=== PATIENT | male | born 1935 | race Caucasian/White ===

== ENCOUNTER 2017-06-25 21:53 | Emergency (ER) | payer OTHER, MEDICAID ==
[2017-06-25] MEDS ORDERED: ACETAMINOPHEN 325 MG TAB PO ONE (22:13)
[2017-06-25 22:25] LABS: PLATELET COUNT 238 10^3/uL (150-400)
[2017-06-25] MEDS ORDERED: NS 1,000 ML IV ONE ×2 (22:27→23:59)
[2017-06-25] MEDS ORDERED: IBUPROFEN 600 MG TAB PO ONE (22:27)
--- NOTE | 2017-06-25 22:31 | EDPHY ---
H & P Stated Complaint: fever Time Seen by Provider: 06/25/17 22:12 HPI/ROS: HPI The patient presents with fever and flu-like symptoms for the last 1 week getting progressively worse to the point that his fever tonight was 104 F. He is brought in by ambulance. He comes from [place] where he is been treated with 2 days of Tamiflu for his symptoms. He has been exposed to several people with similar illness at his [facility]. He complains of a dry cough, rhinorrhea, increased thirst. He has less appetite than usual though is able to tolerate fluids and has not been vomiting. His energy level is much lower than usual and he has been mostly staying in his room for the last 1 week, usually he exercises daily. Nurses at the fpc report that he is more confused than usual. He received Tylenol prior to arrival here. REVIEW OF SYSTEMS Constitutional: No fever, no chills. Eyes: No discharge. ENT: No sore throat. Cardiovascular: No chest pain, no palpitations. Respiratory: No cough, no shortness of breath. Gastrointestinal: No abdominal pain, no vomiting. Genitourinary: No hematuria. Musculoskeletal: No back pain. Skin: No rashes. Neurological: No headache. PMHx: Hyponatremia, hypertension, diabetes, dementia, hypothyroidism Soc Hx: Resides at [place], his currently lives in [place] PHYSICAL General Appearance: Alert, no distress Eyes: Pupils equal and round no pallor or injection ENT, Mouth: Mucous membranes dry Respiratory: There are no retractions, lungs are clear to auscultation Cardiovascular: Tachycardic rate rate and regular rhythm Gastrointestinal: Abdomen is soft and non-tender, no masses, bowel sounds normal Neurological: A&O, moves all extremities Skin: Warm and dry, no rashes Musculoskeletal: Neck is supple non tender Extremities: symmetrical, full range of motion Psychiatric: Patient is oriented X 3, there is no agitation Source: Patient, Family, EMS Exam Limitations: No limitations - Personal History Current Tetanus Diphtheria and Acellular Pertussis (TDAP): Yes - Medical/Surgical History Hx Asthma: No Hx Chronic Respiratory Disease: No Hx Diabetes: Yes Hx Cardiac Disease: No Hx Renal Disease: No Hx Cirrhosis: No Hx Alcoholism: No Hx HIV/AIDS: No Hx Splenectomy or Spleen Trauma: No Other PMH: diabetes, dematitis, dementia, htn, hypo-osmolarlity, hyponatrimia, hypothyroidism, chronic back pain. - Social History Smoking Status: Never smoked Constitutional: Initial Vital Signs Temperature (C) 39.5 C H 06/25/17 22:09 Heart Rate 118 H 06/25/17 22:09 Respiratory Rate 20 06/25/17 22:09 Blood Pressure 139/57 H 06/25/17 22:09 O2 Sat (%) 85 L 06/25/17 22:09 O2 Delivery Mode Nasal Cannula O2 (L/minute) 3 Allergies/Adverse Reactions: No Known Allergies Allergy (Unverified 06/25/17 22:06) Home Medications: Medication Instructions Recorded Aspirin 06/25/17 Cyanocobalamin 06/25/17 Levothyroxine 06/25/17 Lotensin (*) 06/25/17 Metformin HCl 06/25/17 Sodium Bicarbonate 06/25/17 Tamiflu 75 mg (*) 06/25/17 Tylenol 06/25/17 Vitamin D3 06/25/17 Medical Decision Making Differential Diagnosis: This is an 82-year-old male with dementia, hypertension, diabetes, hypothyroidism and hyponatremia who presents brought in by ambulance from [place], his fpc with 1 week of flu-like symptoms and fever, on 2 days of Tamiflu, still with high temperatures to 104 and confusion. On exam, he is tachycardic and febrile. Blood pressure is stable. Differential diagnosis includes sepsis, influenza, pneumonia, bronchitis, sinusitis, urinary tract infection, less likely meningitis. In the emergency department, patient was given 1 L of fluid that started with EMS EN route, 2nd L. labs demonstrated positive for flu B, sodium of 122, unsure what his usual is. Blood cultures were sent. Initial lactate 2.2. Chest x-ray revealed right-sided pneumonia, because of this patient was started on ceftriaxone and azithromycin. Blood pressures trended downward, maps remained above 65. He was given additional L of fluid because of this. There are no hospital beds available currently, thus we have contacted several local hospitals. [facility] has an available bed and I have discussed the case with Dr. Graff of the hospitalist service. He accepts the patient for transport. Repeat lactate resulted and was 1.8. Patient's blood pressures remain stable with maps of about 65. I do not feel central line is indicated at this time for pressors. Critical Care Time: CRITICAL CARE Critical care time spent by me, Dr. Macias, exclusively with this patient was 45 minutes, exclusive of PA time and exclusive of procedures. The organ system at risk was cardiac and I gave IV fluids, antibiotics, close blood pressure monitoring, transferring patient to outside hospital to prevent worsening of the patients condition. - Data Points Laboratory Results: Laboratory Results 06/25/17 22:02 06/25/17 22:02 Medications Given: Discontinued Medications Acetaminophen (Tylenol) 650 mg PO EDNOW ONE Stop: 06/25/17 22:14 Last Admin: 06/25/17 22:39 Dose: Not Given Sodium Chloride (Ns) 1,000 mls @ 0 mls/hr IV EDNOW ONE; Wide Open PRN Reason: Protocol Stop: 06/25/17 22:28 Last Admin: 06/25/17 22:54 Dose: 1,000 mls Azithromycin 500 mg/ Dextrose 255 mls @ 255 mls/hr IV EDNOW ONE PRN Reason: Protocol Stop: 06/26/17 00:04 Last Admin: 06/26/17 00:13 Dose: 255 mls Ceftriaxone Sodium/Dextrose (Rocephin 1 Gm (Premix)) 50 mls @ 100 mls/hr IV EDNOW ONE PRN Reason: Protocol Stop: 06/25/17 23:34 Last Admin: 06/25/17 23:33 Dose: 50 mls Sodium Chloride (Ns) 1,000 mls @ 0 mls/hr IV EDNOW ONE; Wide Open PRN Reason: Protocol Stop: 06/26/17 00:00 Last Admin: 06/26/17 00:16 Dose: 1,000 mls Ibuprofen (Motrin) 600 mg PO EDNOW ONE Stop: 06/25/17 22:28 Last Admin: 06/25/17 22:51 Dose: 600 mg Departure - Departure Disposition: Acute Care Hospital Not [facility] Clinical Impression: Influenza B, Hypoxia, Hyponatremia Sepsis Qualifiers: Sepsis type: sepsis due to unspecified organism Qualified Code(s): A41.9 - Sepsis, unspecified organism Pneumonia Qualifiers: Pneumonia type: due to unspecified organism Laterality: right Lung location: unspecified part of lung Qualified Code(s): J18.9 - Pneumonia, unspecified organism Condition: Fair Referrals: Patient,NotPresent [Unknown] - As per Instructions
[2017-06-25] MEDS ORDERED: AZITHROMYCIN IV 500 MG in D5W 250 ML IV ONE (23:05)
[2017-06-26 00:28] VITALS: TEMP 99; O2SAT 93
[2017-06-26 01:51] VITALS: BP 97/53; PULSE 91; RESP 18
== END 2017-06-26 01:30 | disposition short-term general hospital (02) ==
DX: A41.9 Sepsis, unspecified organism (principal); J10.00 Influenza due to other identified influenza virus with unspecified type of pneumonia; R09.02 Hypoxemia; E87.1 Hypo-osmolality and hyponatremia; I10 Essential (primary) hypertension; E11.9 Type 2 diabetes mellitus without complications; E86.9 Volume depletion, unspecified; Z79.82 Long term (current) use of aspirin
CPT/HCPCS: 71046; 96361; 96365; 96367; 99291; J0456; J0696

== ENCOUNTER 2017-07-07 14:36 | Inpatient (IN) | payer OTHER, MEDICAID ==
--- NOTE | 2017-07-07 14:36 | EDPHY ---
H & P Constitutional: Initial Vital Signs Temperature (C) 36.7 C 07/07/17 14:36 Heart Rate 113 H 07/07/17 14:36 Respiratory Rate 20 07/07/17 14:36 Blood Pressure 156/106 H 07/07/17 14:36 O2 Sat (%) 93 07/07/17 14:36 O2 Delivery Mode Nasal Cannula O2 (L/minute) 4 Allergies/Adverse Reactions: No Known Allergies Allergy (Verified 07/07/17 16:17) Home Medications: Medication Instructions Recorded Acetaminophen [Tylenol 325mg (*)] 650 mg PO Q8 PRN 07/07/17 Aspirin [Aspirin 325 mg (*)] 325 mg PO DAILY 07/07/17 Benazepril HCl [Lotensin (*)] 40 mg PO BID 07/07/17 Cholecalciferol Vit D3 [Vitamin D3 1,000 units PO DAILY@1030 07/07/17 (*)] Cyanocobalamin [Vitamin B12 (*)] 500 mcg PO DAILY@1030 07/07/17 Linezolid [Zyvox 600 mg (*)] 600 mg PO Q12 07/07/17 Metformin HCl [Metformin 1000 mg] 1,000 mg PO DAILY 07/07/17 Metoprolol Tartrate [Lopressor 25 25 mg PO BID 07/07/17 mg (*)] Sodium Bicarbonate [Na Bicarb 650 1,300 mg PO BID 07/07/17 MG (RX)] Sodium Chloride [Saline Nasal Mist] 126 ml NS Q2H PRN 07/07/17 metFORMIN HCL [Metformin HCl] 500 mg PO HS 07/07/17 Medical Decision Making - Diagnostics Imaging: I viewed and interpreted images myself ED Course/Re-evaluation: CHIEF COMPLAINT: Weakness, a-fib HISTORY OF PRESENT ILLNESS: The patient is an 82 y/o male with dementia who arrives via EMS at the recommendation of his PCP after he was found to be in atrial fibrillation at the clinic today. His medical history includes hypertension, diabetes, hypothyroidism, and hyponatremia. He was seen in the ED on 06/25/17, 12 days ago, for flu-like symptoms and diagnosed with flu B and pneumonia. He was admitted to [facility] on ceftriaxone and azithromycin for this and has since been discharged back to [place]. He was evaluated at the clinic today for complaints of weakness that began yesterday. While there an EKG showed atrial fibrillation that is new onset for him. He denies any current symptoms, though is a poor historian due to dementia. REVIEW OF SYSTEMS: Limited by patient's dementia. PHYSICAL EXAM: HR 120, BP, O2 Sat, RR. Temp noted General Appearance: Alert, well hydrated, confused, and non-toxic appearing. Head: Atraumatic without scalp tenderness or obvious injury Eyes: Pupils equal, round, reactive to light and accommodation, EOMI, no trauma , no injection. Nose: Atraumatic, no rhinorrhea, clear. Throat: Mucus membranes moist. Neck: Supple, nontender, no lymphadenopathy. Respiratory: No retractions, no distress, no wheezes, and no accessory muscle use. Lungs are clear to auscultation bilaterally. Cardiovascular: Rapid irregular rate and rhythm, no murmurs, rubs, or gallops. Good capillary refill all extremities. Gastrointestinal: Abdomen is soft, nontender, non-distended, no masses, no rebound, no guarding, no peritoneal signs. Musculoskeletal: Normal active ROM of all extremities, atraumatic. Neurological: Alert, confused, and interactive. The patient has non-focal cranial nerves, motor, sensory, and cerebellar exam. Skin: No rashes, good turgor, no nodules on palpation. Past medical history: Dementia, hypertension, diabetes, hypothyroidism, hyponatremia Past surgical history: Noncontributory Family history: Noncontributory Social history: Lives at [place], single, retired. Prior medical records reviewed including ED visit 06/25/17 for flu and pneumonia. DIAGNOSTICS/PROCEDURES/CRITICAL CARE TIME: The 12 lead EKG was interpreted by myself. Atrial fibrillation rate 120. See hard copy and/or "tracemaster" electronic copy for interpretation. DIFFERENTIAL DIAGNOSIS: The differential diagnosis for the patient's narrow complex tachycardia included but was not limited to various causes of sinus tachycardia such as dehydration and medicines, SVT, atrial flutter, atrial fibrillation, pulmonary causes. Chest x-ray: right-sided pleural effusion MEDICAL DECISION MAKING: This is an 82 y/o male with dementia who presents with a 1-day history of weakness and new-onset atrial fibrillation seen today at his outpatient clinic. History limited by dementia. He is in rapid atrial fibrillation here around 120. Plan for IV, labs, EKG. 1525: Patient's labs show elevated troponin and BNP. He is also flu positive. Patient will require admission for new-onset atrial fibrillation, CHF, acute coronary syndrome, and flu. Cardiology paged. Spoke with Dr. Wade, hospitalist. He accepts admission and requests Lopressor for rate control, which I have ordered. Cardiology paged again. 1615: We still have not heard back from cardiology. Tech will contact the section laborer so we can find a physician I can consult with. 1620: Consulted with Dr. Brantley, crocodile farmer. He will consult during admission. - Data Points Laboratory Results: Laboratory Results 07/07/17 14:40 07/07/17 14:40 07/07/17 07/07/17 07/07/17 14:40 14:40 14:40 WBC 14.40 10^3/uL H 10^3/uL (3.80-9.50) RBC 4.24 10^6/uL L 10^6/uL (4.40-6.38) Hgb 12.1 g/dL L g/dL (13.7-17.5) Hct 37.1 % L % (40.0-51.0) MCV 87.5 fL fL (81.5-99.8) MCH 28.5 pg pg (27.9-34.1) MCHC 32.6 g/dL g/dL (32.4-36.7) RDW 14.9 % % (11.5-15.2) Plt Count 509 10^3/uL H 10^3/uL (150-400) MPV 9.0 fL fL (8.7-11.7) Neut % (Auto) 86.7 % H % (39.3-74.2) Lymph % (Auto) 7.9 % L % (15.0-45.0) Pitt % (Auto) 4.4 % L % (4.5-13.0) Eos % (Auto) 0.2 % L % (0.6-7.6) Baso % (Auto) 0.3 % % (0.3-1.7) Nucleat RBC Rel Count 0.0 % % (0.0-0.2) Absolute Neuts (auto) 12.47 10^3/uL H 10^3/uL (1.70-6.50) Absolute Lymphs (auto) 1.14 10^3/uL 10^3/uL (1.00-3.00) Absolute Monos (auto) 0.64 10^3/uL 10^3/uL (0.30-0.80) Absolute Eos (auto) 0.03 10^3/uL 10^3/uL (0.03-0.40) Absolute Basos (auto) 0.05 10^3/uL 10^3/uL (0.02-0.10) Absolute Nucleated RBC 0.00 10^3/uL 10^3/uL (0-0.01) Immature Gran % 0.5 % % (0.0-1.1) Immature Gran # 0.07 10^3/uL 10^3/uL (0.00-0.10) PT 14.3 SEC SEC (12.0-15.0) INR 1.09 (0.83-1.16) APTT 30.9 SEC SEC (23.0-38.0) Sodium 135 mEq/L mEq/L (135-145) Potassium 4.4 mEq/L mEq/L (3.5-5.2) Chloride 96 mEq/L L mEq/L (97-110) Carbon Dioxide 31 mEq/l mEq/l (22-31) Anion Gap 8 mEq/L mEq/L (8-16) BUN 15 mg/dL mg/dL (7-23) Creatinine 0.8 mg/dL mg/dL (0.7-1.3) Estimated GFR > 60 Glucose 158 mg/dL H mg/dL (70-100) Calcium 8.4 mg/dL L mg/dL (8.5-10.4) Magnesium 2.1 mg/dL mg/dL (1.6-2.3) Troponin I 0.146 ng/mL H ng/mL (0.000-0.034) NT-Pro-B Natriuret Pep 57265 pg/mL H pg/mL (0-450) Medications Given: Discontinued Medications Metoprolol Tartrate (Lopressor Injection) 5 mg IVP EDNOW ONE Stop: 07/07/17 15:36 Last Admin: 07/07/17 16:18 Dose: 5 mg Departure - Departure Disposition: [facility] Clinical Impression: New onset atrial fibrillation, Acute coronary syndrome, Influenza Congestive heart failure Qualifiers: Congestive heart failure type: unspecified Congestive heart failure chronicity : unspecified Qualified Code(s): I50.9 - Heart failure, unspecified Dementia Qualifiers: Dementia type: unspecified type Dementia behavioral disturbance: without behavioral disturbance Qualified Code(s): F03.90 - Unspecified dementia without behavioral disturbance Condition: Fair Report Scribed for: Allen Sena Report Scribed by: Karen Torres Date of Report: 07/07/17 Time of Report: 15:13
--- NOTE | 2017-07-07 14:52 | CPEKG ---
Heart Rate: 118 RR Interval: 508 P-R Interval: 176 QRSD Interval: 108 QT Interval: 360 QTC Interval: 505 P [place]: 61 QRS [place]: -44 T Wave [place]: 124 EKG Severity - ABNORMAL ECG - EKG Impression: SINUS TACHYCARDIA WITH IRREGULAR RATE 78-155 EKG Impression: LEFT ANTERIOR FASCICULAR BLOCK EKG Impression: ANTERIOR INFARCT, AGE INDETERMINATE EKG Impression: PROLONGED QT INTERVAL Electronically Signed By: Allen Sena 07-Jul-2017 19:44:02
[2017-07-07 15:03] LABS: PLATELET COUNT 509 10^3/uL (150-400)
[2017-07-07 15:35] LABS: INR 1.09 (0.83-1.16); PROTIME(PATIENT) 14.3 SEC (12.0-15.0)
[2017-07-07] MEDS ORDERED: METOPROLOL TARTRATE 5 MG/5 ML INJ IVP ONE (15:35)
[2017-07-07] MEDS ORDERED: ACETAMINOPHEN 325 MG TAB PO PRN (17:17)
[2017-07-07] MEDS ORDERED: ONDANSETRON DISINTEGRATING 4 MG TAB PO PRN (17:18)
[2017-07-07] MEDS ORDERED: oxyCODONE IR 5 MG TAB PO PRN (17:18)
[2017-07-07] MEDS ORDERED: ONDANSETRON 4 MG/2 ML VIAL IVP PRN (17:18)
[2017-07-07] MEDS ORDERED: DILTIAZEM 125 MG in D5W 125 ML IV SCH (18:00)
[2017-07-07] MEDS ORDERED: D50W 25 GM/50 ML SYR IVP PRN (18:04)
--- NOTE | 2017-07-07 18:53 | GHP ---
[f rep st] HISTORY AND PHYSICAL DATE OF ADMISSION: 07/07/2017 CHIEF COMPLAINT: New atrial fibrillation. HISTORY OF PRESENT ILLNESS: This is an 82-year-old man who lives at [place]. He was found to have new atrial fibrillation. He has some dementia. However, his history is reasonably reliable. He does not really remember the events over the last few days, though he can answer questions about his current condition. What I was told in the Emergency Department is he had been not feeling very well. He had an EKG, which showed new atrial fibrillation. I have a note from Denise Guerrero, who evaluated him at [facility], and confirm this. He was thus sent into the Emergency Department for further evaluation after speaking with his daughter, Lata. He tells me that he is not having any chest pain. He has never had any cardiac conditions before. He may have had a stroke in the past per his daughter, though he does not confirm this. He also denies palpitations. He has diabetes, on metformin. He recently presented to our ED, was transferred to an outside hospital for treatment. His daughter reports that he was treated for influenza, a pneumonia and MRSA though she is not clear if this was a MRSA pneumonia. He is on Zyvox. PAST MEDICAL/SURGICAL HISTORY: 1. Dementia, though he is relatively oriented for me. 2. Diabetes mellitus type 2. 3. Hypothyroid. 4. Hypertension. 5. Recent hospitalization for pneumonia and MRSA. Daughter is not sure if this was an MRSA pneumonia. 6. History of "mini strokes" in the past. MEDICATIONS: Please see medication reconciliation. ALLERGIES: No known drug allergies. SOCIAL HISTORY: He is . His daughter, Lata, is involved. He is a former smoker. He does not drink. He lives at [facility]. He walks with a walker. FAMILY HISTORY: His uncle had brain cancer. REVIEW OF SYSTEMS: A 10-point review of systems is conducted and is negative except per HPI. PHYSICAL EXAM: VITAL SIGNS: Blood pressure 138/75, heart rate 102, respiration rate 18, saturating 95% on room air, temperature 37. GENERAL: The patient is a pleasant man who is resting comfortably, in no acute distress. HEENT: Normocephalic, atraumatic. CARDIOVASCULAR: Irregularly irregular. There is a faint systolic murmur. PULMONARY: Lungs clear bilaterally. ABDOMEN : Soft, nontender, nondistended. SKIN: No rash. : No Patel. NEUROLOGIC: Alert and oriented x3. He has a nonfocal neurologic exam. He does have some difficulty with recent events. LABS: White count is 14.4, platelets are 509, hemoglobin 12, INR is 1.0, troponin 0.146, BNP is 15,200, creatinine 0.8. DATA: 1. Chest x-ray, which I personally viewed and interpreted, shows complete opacification of the right lung. Trachea is midline. His previous study the images are not available from June 25, though the read does show a right middle and lower lobe pneumonia. 2. EKG, which I personally viewed and interpreted, shows multifocal atrial tachycardia. IMPRESSION AND PLAN: 1. Arrhythmia: Reported as atrial fibrillation, though EKG here is more consistent with MAT. Certainly triggered by his pneumonia. He is hemodynamically stable, though mildly tachycardic. Given his elevated troponin , I think it is reasonable to lower his rate into the 80s to 90s. I have placed him on a diltiazem drip at this point. I discussed anticoagulation with him and his daughter. They would be amenable. However, without any clear objective evidence available to me right now, I do not think we should anticoagulate at this point. That would be a consideration. Cardiology has been consulted as well. 2. Elevated troponin: Not having any chest pain. Likely demand in the setting of atrial fibrillation versus pneumonia. We will trend these. He is on aspirin, continue this. As above, cardiology consult. 3. Recent diagnosis of influenza, as well as pneumonia and methicillin- resistant Staphylococcus aureus. Records are not available to me at this point. I have checked [facility]. He has a markedly abnormal chest x-ray, though he is breathing comfortably on room air. He does have a white count of 14,000, which is elevated from his white count when he first presented to this emergency department 12 days ago. I would like to obtain outside records including a chest X-ray. I will order a CT of his chest for additional information. I have placed him on continuous pulse oximetry. He will be placed on contact precautions. 4. Influenza: Likely has completed a course of Tamiflu, as I do not see this on his list. He is on droplet precautions. 5. Diabetes mellitus: We will hold his metformin. We will place him on a low- dose sliding scale and follow his blood sugars. 6. Hypertension: We will hold his benazepril while he is on a Cardizem drip. Blood pressures are reasonable. 7. Cor status: He is reported as full in note from [facility]. /[id number]/MODL MTDD
[2017-07-07] MEDS ORDERED: METOPROLOL TARTRATE 50 MG TAB PO SCH (21:00)
[2017-07-07] MEDS ORDERED: ENOXAPARIN 80 MG/0.8 ML SYR SC SCH (21:00)
[2017-07-07] MEDS ORDERED: SODIUM CL NASAL 45 ML BTL EACHNARE PRN (21:04)
[2017-07-07] MEDS: LINEZOLID 600 MG TAB PO SCH (21:24)
[2017-07-07] MEDS: SODIUM BICARBONATE 650 MG TAB PO SCH (22:00)
[2017-07-08 04:47] LABS: PLATELET COUNT 429 10^3/uL (150-400)
[2017-07-08] MEDS: INSULIN LISPRO 100 UNIT/ML SC SCH ×3 (08:38→17:24)
[2017-07-08] MEDS ORDERED: IOPAMIDOL (ISOVUE-300) 100 ML BTL ONE (08:56)
[2017-07-08] MEDS ORDERED: ASPIRIN 325 MG TAB PO SCH (09:00)
[2017-07-08] MEDS ORDERED: ASPIRIN EC 81 MG TAB PO SCH (09:00)
[2017-07-08] MEDS ORDERED: ENOXAPARIN 40 MG/0.4 ML SYR SC SCH (09:00)
--- NOTE | 2017-07-08 09:51 | ECHO ---
[email or web address] [address] [address] Main: [phone] Fax: Transthoracic Echocardiogram Name: ELIJAH GUTIERREZ MR#: [id number] Study Date: 07/08/2017 Study Time: 07:48 AM Date of : 1935 Age: 82 year(s) Height: 182.9 cm (72 in.) Weight: 86.18 kg (190 lb.) BSA: 2.08 m2 Gender: Male Examination: Echo Indication: New onset A-fib, now NSR, Decreased SAT's, Increased O2 needs Image Quality: Contrast: Requested by: Alexandr Wade BP: 142 mmHg/74 mmHg Heart Rate: Rhythm: Normal sinus rhythm Indication: New onset A-fib, now NSR, Decreased SAT's, Increased O2 needs Procedure Staff Director Sales: German Hu Reading Physician: Edgar Brantley Requesting Provider: Alexandr Wade Conclusions: Normal size left ventricle. The ejection fraction is estimated to be 30-35 %. There is apical septal and apical cap to apical lateral hypokinesis. There is Anterolateral to inferloateral hypokinesis in short axis view. There is basilar anterior to apical anterior hypokinesis in the 2C view. The EF is estimated at 30%. Mild mitral valve regurgitation is present. Mild to moderate tricuspid valve regurgitation. The pulmonary artery pressure is moderately to severely increased. No pericardial effusion. Measurements: Chambers Valvular Assessment AV/MV Valvular Assessment TV/PV Normal Normal Normal Name Value Range Name Value Range Name Value Range Ao Shanon (MM): 3.5 cm (2.2 cm-3.7 AV Vmax: 2.13 m/s (1 m/s-1.7 TR Vmax: 3.92 mm/s ( - ) cm) m/s) TR PGmax: 61 mmHg ( - ) IVSd (2D): 1.2 cm (0.6 cm-1.1 AV maxP mmHg ( - ) syst. PAP: 66 mmHg ( - ) cm) LVOT Vmax: 0.69 m/s (0.7 m/s-1.1 PV Vmax: 0.95 m/s (0.6 m/s-0.9 LVDd (2D): 5.4 cm (4.2 cm-5.9 m/s) m/s) cm) MV E Vmax: 1.13 m/s ( - ) PV PGmax: 4 mmHg ( - ) LVDs (2D): 4.3 cm (2.1 cm-4 MV A Vmax: 0.91 m/s ( - ) cm) MV E/A: 1.24 ( - ) LVPWd (2D): 1.2 cm (0.6 cm-1 cm) LVEF (BP): 28 % (>=55 %) Visual EF: 30 % EF Range: 30-35 % Continued Measurements: Patient: ELIJAH GUTIERREZ Study Date: 07/08/2017 Page 1 of 2 07:48 AM Chambers Valvular Assessment AV/MV Valvular Assessment TV/PV Name Value Name Value Name Value LADs Lon.0 cm MV E' Septal: 0.05 m/s CVP (est.): 5 mmHg LA Area: 20.7 cm2 MV E/E' Septal: 23.60 MV E/E' Lateral: 27.60 Findings: Left Ventricle: Normal size left ventricle. The ejection fraction is estimated to be 30-35 %. The ejection fraction is visually estimated to be 30 %. There is apical septal and apical cap to apical lateral hypokinesis. There is Anterolateral to inferloateral hypokinesis in short axis view. There is basilar anterior to apical anterior hypokinesis in the 2C view. The EF is estimated at 30%. Right Ventricle: Normal size right ventricle. Left Atrium: The left atrium is normal in size. Right Atrium: The right atrium is normal in size. Mitral Valve: The mitral valve is normal in appearance. Mild mitral valve regurgitation is present. Aortic Valve: The aortic valve is tri-leaflet and functions normally. Tricuspid Valve: Mild to moderate tricuspid valve regurgitation. The pulmonary artery pressure is moderately to severely increased. Pulmonic Valve: The pulmonic valve is normal in appearance and function. Aorta: The aorta is normal. Pericardium: No pericardial effusion. (No Signature Object) Patient: ELIJAH GUTIERREZ Study Date: 07/08/2017 Page 2 of 2 07:48 AM [id number]
[2017-07-08] MEDS: METOPROLOL TARTRATE 25 MG TAB PO SCH ×2 (10:14→20:58)
[2017-07-08] MEDS: ASPIRIN EC 325 MG TAB PO SCH (10:14)
[2017-07-08] MEDS: SODIUM BICARBONATE 650 MG TAB PO SCH ×2 (10:14→20:59)
[2017-07-08] MEDS: ENOXAPARIN 40 MG/0.4 ML SYR SC SCH (10:14)
--- NOTE | 2017-07-08 10:14 | CPEKG ---
Heart Rate: 89 RR Interval: 674 P-R Interval: 172 QRSD Interval: 110 QT Interval: 404 QTC Interval: 492 P [place]: 56 QRS [place]: -43 T Wave [place]: 119 EKG Severity - ABNORMAL ECG - EKG Impression: SINUS RHYTHM EKG Impression: ATRIAL PREMATURE COMPLEX EKG Impression: NONSPECIFIC IVCD WITH LAD EKG Impression: ANTERIOR INFARCT, AGE INDETERMINATE EKG Impression: LATERAL ST DEPRESSION NOW RESOLVED Electronically Signed By: Keke Zepeda 08-Jul-2017 18:17:32
[2017-07-08] MEDS: PIPERACILLIN/TAZO 4.5 GM/DEX 100 ML IV SCH ×2 (10:54)
[2017-07-08] MEDS: LINEZOLID 600 MG TAB PO SCH ×2 (10:55→20:58)
[2017-07-08] MEDS ORDERED: ALTEPLASE 2 MG VIAL IVP PRN (11:41)
[2017-07-08 12:39] LABS: INR 1.17 (0.83-1.16); PROTIME(PATIENT) 15.1 SEC (12.0-15.0)
[2017-07-08] MEDS ORDERED: LIDOCAINE 1% 300 MG/30 ML SDV ONE (14:08)
--- NOTE | 2017-07-08 17:01 | ASMTCMCOM ---
CM Note CM Note Notes: 07/08/2017 Case Management Note Phone call with Della daughter BROOKE [phone]. Della reports that mother lives in [place] and is in hospital in [place]. Della herself has MS and Lupus and is feeling overwhelmed with decisions re: care of both parents. Case Management recommended palliative care consult. RN notified. Della requesting change from [facility] b/c of complaints from Dad on the phone. [facility] feels it is d/t pt dementia. Pt is placed at [facility] on [facility] per Della in early June. Pt won't be able to switch facilities until 30 day stay is completed at [facility]. Prior to [facility] Della reported pt was living at [facility]. Case Management d/c poc: return to [facility] unless able to switch to new facility. Case Management to follow. Date Signed: 07/08/2017 05:00 PM Electronically Signed By:Sandra Méndez RN
--- NOTE | 2017-07-08 17:18 | GCON ---
[f rep st] CONSULTATION CARDIOLOGY CONSULTATION DATE OF CONSULTATION: 07/08/2017 REFERRING PHYSICIAN: Alexandr Wade MD REASON FOR CONSULTATION: 1. New onset atrial fibrillation. 2. Elevated troponin. HISTORY OF PRESENT ILLNESS: The patient is an 82-year-old male who resides at the Memory Unit at [facility]. He was seen in the emergency room earlier this month and was diagnosed with influenza and p neumonia. Because of the lack of bed space he was hospitalized at [facility]. Subsequent to his discharge he was evaluated in the outpatient setting. He was noted to be in atrial fibrillat ion with a rapid ventricular response and was sent to the emergency room here yesterday. He was plac ed on PCU overnight. While on intravenous diltiazem he spontaneously returned to normal sinus rhythm . The patient denies any antecedent cardiac history or symptoms. Although he is on a memory care un it he seems to provide a fairly reliable history. He denies any symptoms of chest pain, palpitations , shortness of breath, or signs of fluid retention. PAST MEDICAL HISTORY: 1. Dementia. 2. Type 2 diabetes. 3. Hypothyroidism. 4. Hypertension. 5. Recent pneumonia. 6. Possible prior TIA episodes. FAMILY HISTORY: Noncontributory. MEDICATIONS: Please refer to the electronic record. Relevant cardiac medications consist of metopro lol 25 mg twice a day, benazepril 40 mg twice a day, and aspirin 325 mg daily. ALLERGIES: No known allergies. SOCIAL HISTORY: He is . He has a daughter who resides locally. He says that he has never be en a smoker and does not consume alcohol. REVIEW OF SYSTEMS: A 10-point review was negative. PHYSICAL EXAMINATION: VITAL SIGNS: Heart rate in the 80s with normal sinus rhythm on the monitor. Blood pressure 142/72. GENERAL: This is a somewhat ill-appearing elderly male. He does not appear to be in any distress. HEAD AND NECK: No scleral icterus. Mucous membranes moist. Carotid pulses 2+ without bruits. There is no JVD. CHEST: No breath sounds on the right side at least two thirds of the way up the lung field. Minimal crackles at the left base. No wheezes. ABDOMEN: Soft, nondi stended, nontender without masses. EXTREMITIES: 2+ pulses and no peripheral edema. LABORATORY STUDIES: Sodium 138, potassium 4.1, BUN and creatinine 14 and 0.7. Troponin levels have come back at 0.146, 0.124, [place] 0[place]133. [place] [address], TSH is high at 14.9. CBC demonstrat es a white blood cell count 10.5 with hemoglobin and hematocrit of 10.6 and 33.5. Platelet count is 429,000. ECG: His ECG from yesterday demonstrates atrial fibrillation with a heart rate of 118 beats per alirio te. There is a left anterior fascicular block and anterior Q-waves. No ischemic ST-T wave abnormali ties. His ECG today demonstrates sinus rhythm at 89 beats per minute with other findings unchanged. Echocardiogram: His echocardiogram demonstrates normal left ventricular size. His ejection fraction is 30%-35% with severe hypokinesis to akinesis the anterior, apical septal, apical lateral, and apic al inferior wall segments. He has age-related valvular changes without hemodynamically significant v alvular dysfunction. Chest CT: His chest CT demonstrates a large right-sided pleural effusion with compressive atelectasi s. There is a possible abscess in the inferior aspect of the right upper lobe. Moderate coronary ca lcification is noted. IMPRESSION: This is an 82-year-old male who presents with a new diagnosis of paroxysmal atrial fibri llation. He is now in sinus rhythm. He is being transitioned to oral beta-jenn therapy per his [facility] medication list. He is also on long-standing MAKSIM inhibitor therapy. His echocardiogram is suggestive of a prior anterior myocardial infarction. However, the patient denies any clinical hist ory consistent with an anterior AL. It is possible that this represents Takotsubo syndrome in the se tting of his recent illness. He has a large right-sided pleural effusion which may need to be tapped . His chest CT confirms the presence of coronary atherosclerosis. He does not have any symptoms of angina or CHF at present. Although, he almost certainly has a component of chronic systolic CHF. Gi ghanshyam his current illness and issues of dementia, I think a conservative approach is most appropriate. We will plan for a pharmacologic nuclear stress test at some point in his hospital stay. /[id number]/MODL
--- NOTE | 2017-07-08 19:31 | HOSPPROG ---
Hospitalist Progress Note Assessment/Plan: Assessment: 82-year-old male presents with paroxysmal atrial fibrillation and acute rapid ventricular response in the setting of pulmonary abscess, large pleural effusion Plan: 1. Paroxysmal atrial fibrillation. New diagnosis, acute rapid ventricular response, most likely provoked in the setting of reduced ejection fraction as well as worsening infection and pleural effusion -appreciate Cardiology consultation -chemically cardioverted with IV diltiazem, continue on metoprolol 25 mg twice daily, up titrate if returns back into a atrial fibrillation or multifocal atrial tachycardia -continue monitor on telemetry -will discuss with Cardiology recommendations for possible systemic anticoagulation 2. Suspected chronic systolic congestive heart failure. Unclear whether the patient is experiencing an acute exacerbation, his ejection fraction is currently 30-35% with focal wall motion abnormalities indicative of previous anterior myocardial infarction, with elevated BNP, pleural effusions on chest x- ray, marginally elevated troponin secondary to cardiac strain -continue to monitor volume status closely -will begin using IV diuretics if respiratory status worsens -diagnostic and therapeutic thoracentesis today -continue on beta-jenn, will adjust to metoprolol succinate or Coreg prior to discharge 3. Pulmonary abscess. Present on admission, new diagnosis, right lower lobe, personally interpreted on chest CT and discussed with Dr. Keon Douglas, with surrounding suspected parapneumonic effusion -thoracentesis today demonstrating exudative effusion by light's criteria -sent for culture -pulmonary abscess remains, will discuss with Infectious Disease tomorrow whether we will advocate for surgical drainage verses extended course of IV antibiotics -discussed with Dr. Natacha Plaza today, she reports that the patient demonstrated worsening airspace disease on chest x-ray prior to his most recent discharge, most likely had an evolving abscess at that time -continue patient on oral linezolid given that he has no IV access -get PICC line 4. Acute hypoxic respiratory failure. Evidenced by tachypnea, hypoxia requiring up titration to high-flow supplemental oxygen, currently on 10 L high- flow, with visible shortness of breath prior to up titration, most likely secondary to worsening pleural effusion and airspace disease -therapeutic thoracentesis -continue high-flow oxygen, continue attempts to wean -if unable to wean, will begin actively diuresing -ABG demonstrating no evidence of hypercapnia 5. Chronic encephalopathy. Patient has a limited understanding of his current situation, continued to work with patient and his family to provide optimal care -most likely will require detention facility discharge 6. Acute atelectasis. Left side on chest x-ray, incentive spirometer Diet. Regular Prophylaxis. High risk patient, Lovenox 40 Code. Full Disposition. Anticipated discharge uncertain, patient continues to have high- level of medical complexity secondary to issues outlined above. Subjective: Patient with shortness of breath this morning, somewhat alleviated with up titration of oxygen Objective: Vital Signs Temp Pulse Resp BP Pulse Ox 36.7 C 96 20 131/73 H 98 07/08/17 16:00 07/08/17 16:00 07/08/17 16:00 07/08/17 16:00 07/08/17 16:00 Laboratory Results 07/08/17 03:52 07/08/17 03:52 07/07/17 07/08/17 07/09/17 05:59 05:59 05:59 Intake Total 200 100 Output Total 300 2400 Balance -100 -2300 PT 15.1 SEC (12.0-15.0) H 07/08/17 12:05 INR 1.17 (0.83-1.16) H 07/08/17 12:05 - Physical Exam Constitutional: no apparent distress, not in pain, chronically ill appearing, uncomfortable (Right chest) Cardiovascular: edema (Trace bilateral lower extremity), No systolic murmur, No irregularly irregular, No tachycardia Respiratory: reduced air movement (Right side), inspiratory crackles (Left base) , rhonchi (Right-sided), other (Positive egophony right side), No expiratory wheeze, No bronchial breath sounds Gastrointestinal: normoactive bowel sounds, soft, non-tender abdomen, no palpable masses, No distension Neurologic: sensation intact bilaterally, other (Alert awake oriented times 2 to person and time not to place), No facial droop Psychiatric: not anxious, poor insight, poor memory, other (Concentration 4/7), No agitated ICD10 Worksheet Patient Problems: Problems Problem Status Onset New onset atrial fibrillation Acute Acute coronary syndrome Acute Congestive heart failure Acute Influenza Acute Dementia Acute
--- NOTE | 2017-07-09 02:30 | GCON ---
[f rep st] CONSULTATION INFECTIOUS DISEASE CONSULTATION REFERRING PHYSICIAN: Miah Barber MD REASON FOR CONSULTATION: MRSA pneumonia and possible abscess and possible empyema. HISTORY OF PRESENT ILLNESS: This is a very pleasant 82-year-old male, who lives at [facility]. He has a past medical history of type 2 diabetes and sodium disturbances with a diagnosis of early dementia. He was in his usual state of health until earlier this month around June 25 when patient became febrile with coughing, presented to [facility] emergency room where he was found to be febrile and significantly hypoxic with a positive influenza A test. Patient was started on Tamiflu, azithromycin, and ceftriaxone and transferred to [facility] for ongoing management due to lack of beds. There, patient had a sputum sample that was positive for MRSA, and patient was started on vancomycin and later transitioned to linezolid around the time of discharge, which was 06/30/2017. While patient was there, his last chest x-ray showed a right pleural effusion and consolidation, and last chest x-ray on the showed increasing moderate right-sided pleural effusion. As mentioned above, patient was discharged on the , and he reports that after returning to [facility], his symptoms continued to progress with ongoing fatigue, progressive shortness of breath, and a dry cough that was paroxysmal in nature. Of note, patient had blood cultures at prior hospitalization that were negative. Patient was discharged on linezolid, which he was receiving at [facility]. He denied any rash, chills, weight loss, or noticeable fever. PAST MEDICAL HISTORY: 1. Carries a diagnosis of dementia, although patient is conversational and oriented. 2. Type 2 diabetes. 3. Hypothyroidism. 4. Hypertension. 5. Recent hospitalization for influenza and MRSA pneumonia. 6. History of mini strokes. 7. Remote history of tonsillectomy and adenoidectomy at age 7. No other surgeries. MEDICATIONS: Zosyn 4.5 g IV q.6, Tylenol, Cathflo, aspirin, Lovenox, lispro, Zyvox 600 mg q.12 orally, Lopressor 25 mg twice daily, Zofran, oxycodone, sodium bicarb tablets 1300 twice daily. ALLERGIES: NKDA. SOCIAL HISTORY: Patient is . He has a daughter and a son. He came to [place] from [place] approximately 3 years ago. Originally lived in the [place], but came over to [place] about a year ago. He reports the precipitant to moving to [place] related to his daughter. Former smoker. No alcohol. Lives at [facility]. Reports walking extensive distances with his walker. 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 As one would expect, his hobby was [employer]. FAMILY HISTORY: Positive for an uncle with brain cancer. REVIEW OF SYSTEMS: A complete 10-point review of systems was performed and is negative except as per HPI. Of note, I saw patient post thoracentesis and reports significant improvement in his shortness of breath and cough. PHYSICAL EXAMINATION: VITAL SIGNS: 131/73, heart rate 96, respiratory rate 20 , saturation 98% on 10 L, temperature 36.7. He has been afebrile throughout this hospital course. GENERAL: This is a very pleasant elderly male, sitting up in bed, in no distress with fluent speech. HEENT: He has dry mucous membranes. He is edentulous. No conjunctival hemorrhages. NECK: Supple. CARDIOVASCULAR: Distant heart sounds. Appeared to have had a regular rate. No murmurs. CHEST: Patient had decreased breath sounds in the right base with crackles in the mid lung field. No wheezes. ABDOMEN: Soft, nontender. Bowel sounds are present. EXTREMITIES: Trace bilateral lower extremity edema, otherwise, no abnormalities. SKIN: Without rash. Notable pallor. NEUROLOGIC : He is moving all 4 extremities equally, but generally weak. No noticeable cranial nerve abnormalities. LABORATORY DATA: White count on admission 14, today 10.5; platelets 509 on admission, 429 today; hematocrit 37-33. IMAGING DATA: A chest x-ray on admission showed complete opacification of the right hemithorax with noticeable improvement post thoracentesis this afternoon, now with noticeable right middle lobe and right lower lobe atelectasis. CT scan showed a large right pleural effusion and mild to moderate left pleural effusion with hypodense areas in the right middle and right lower lobe with gas collection, query abscess. ASSESSMENT: This is an 82-year-old male, who has type 2 diabetes, who recently had influenza complicated by methicillin-resistant Staphylococcus aureus pneumonia with progressive shortness of breath and coughing and is found to have atrial fibrillation and therefore transferred to the emergency room for further evaluation. Upon evaluation, patient is found to have a large right pleural effusion and possible lung abscess on the right. Etiology of pleural effusion is not clear at this point, as patient does have congestive heart failure noticeable. Echo here showed an EF of 30%, while recently at [facility] was 45%. Patient is currently undergoing workup to rule out empyema and to evaluate. There is presence of ongoing pneumonia and abscess related to methicillin-resistant Staphylococcus aureus. PLAN: 1. Continue linezolid 600 mg twice daily for now. Will request records for microbiology report. 2. Discontinue Zosyn as it is unlikely that there is a third pathogen playing a role in the course of the illness. 3. Follow up on analysis of pleural effusion and likely patient needs repeat CT scan at some point to reassess the presence of abscesses. Will discuss with Radiology if needs repeat IV dye. 4. Blood cultures were collected on admission and will continue to follow up on this. 5. Monitor for side effects related to linezolid. One most concerning is thrombocytopenia, and patient currently has thrombocytosis. Further noted, patient is not on an SSRI. Thank you for this consultation. Will continue to follow on a daily basis. Time 70 minutes with greater than 50% time spent with review records and education counseling regarding treatment of infection. /[id number]/MODL MTDD
[2017-07-09 05:17] LABS: PLATELET COUNT 414 10^3/uL (150-400)
[2017-07-09] MEDS: INSULIN LISPRO 100 UNIT/ML SC SCH ×3 (08:10→18:47)
[2017-07-09] MEDS ORDERED: FUROSEMIDE 20 MG/2 ML VIAL IVP SCH (09:00)
[2017-07-09] MEDS: ENOXAPARIN 40 MG/0.4 ML SYR SC SCH (09:06)
[2017-07-09] MEDS: LINEZOLID 600 MG TAB PO SCH ×2 (09:06→20:24)
[2017-07-09] MEDS: METOPROLOL TARTRATE 25 MG TAB PO SCH ×2 (09:06→20:25)
[2017-07-09] MEDS: SODIUM BICARBONATE 650 MG TAB PO SCH ×2 (09:06→20:25)
[2017-07-09] MEDS: ASPIRIN EC 325 MG TAB PO SCH (09:06)
[2017-07-09] MEDS: FUROSEMIDE 20 MG TAB PO SCH ×2 (09:38→16:26)
--- NOTE | 2017-07-09 10:21 | PDMN ---
Medical Necessity Medical necessity: Change to IP, as of 07/09/17, per MD; los >2 mn for ongoing management of paroxysmal AFIB & acute rapid ventricular response in the setting of a pulmonary abscess & large pleural effusion with possible acute systolic CHF exacerbation & acute hypoxic respiratory failure; pt medically complex, admit for further workup/monitoring, ID consult, med management & therapies; hx recent hospitalization for influenza, pneumonia & MRSA, dementia, diabetes, htn & "mini strokes"; per progress note & order 07/09/17
--- NOTE | 2017-07-09 12:38 | PCMIDPN ---
Assessment/Plan: # respiratory failure on admission significantly improved. Suspect primary component of CHF and removal of effusion. Patient is down to 3 L from 10 L # R-sides PNA due to MRSA with possible early abscess s/p 2+L removal of effusion (parapneumonic but also likely due to CHF). Recent CT showed complete collapse of the right lung and --repeat CT to re-assess degree of infection --patient on Linezolid, no side effects to date. Will try to get susceptibility report, could change to doxycycline. I called Micro Lab at [facility] and they refused to release susceptibility information. Will try to obtain through records release. Unfortunately [facility] does not list the micro report Medications Linezolid 600 mg p.o. twice daily, start date 06/30/2017 Microbiology 07/08 blood cultures (2) no growth today Subjective: 2.25L serous fluid removed yesterday by US Does not want to do physical therapy as he "can handle it himself" no diarrhea appetite okay Objective: Vital Signs Temp Pulse Resp BP Pulse Ox 36.5 C 75 15 103/49 L 88 L 07/09/17 10:52 07/09/17 10:52 07/09/17 10:52 07/09/17 10:52 07/09/17 10:52 - Physical Exam General Appearance: alert, no apparent distress, non-toxic EENT: pale conjunctiva, other (dentures), No thrush Respiratory: No accessory muscle use Neck: supple Cardiac/Chest: regular rate, rhythm Extremities: No pedal edema Abdomen: non-tender, soft Skin: pallor, No diaphoresis, No jaundice Neuro/Psych: alert, normal mood/affect, oriented x 3 ICD10 Worksheet Patient Problems: Problems Problem Status Onset Acute coronary syndrome Acute Congestive heart failure Acute Dementia Acute Influenza Acute New onset atrial fibrillation Acute
[2017-07-09] MEDS ORDERED: ALTEPLASE 2 MG VIAL IVP PRN (13:50)
--- NOTE | 2017-07-09 17:16 | PDCARPN ---
Cardiology Progress Note Assessment/Plan: Cardiomyopathy: LVEF approximately 30% with regional wall motion abnormalities in the LAD territory. No prior history of myocardial infarction or cardiac symptoms. Chronic Systolic CHF: BNP is markedly elevated at 15,200. He had a large right- sided pleural effusion. A thoracentesis yesterday removed over 2 L of fluid. This may be partially due to CHF but it is also likely a parapneumonic effusion. - Monitor for increasing weight and signs of fluid retention which would indicate initiation of diuretic therapy. Paroxysmal Atrial Fibrillation: Maintaining sinus rhythm on beta jenn therapy. - Will need to discuss/initiate systemic anticoagulation for stroke prophylaxis. Will defer this until it is certain that he does not require any further invasive procedures. Coronary Artery Disease: Atherosclerosis confirmed as characterized by incidentally noted coronary calcifications on his chest CT. No anginal symptoms. Modest troponin elevation was most likely a myocardial oxygen supply/ demand mismatch related to his atrial fibrillation with rapid ventricular response. - Will plan for a Lexiscan nuclear stress test prior to discharge. That could be tomorrow, Friday, or early next week depending on the anticipated length of his hospitalization. - His lipid panel demonstrated a total cholesterol of 104 with HDL 21, LDL 63, and triglycerides 103. Will give consideration to low dose statin therapy a later time. 07/09/17 17:13 Subjective: No complaints. Objective: Vital Signs (8 Hrs) Temp Pulse Resp BP Pulse Ox 07/09/17 15:46 36.7 C 76 12 123/63 H 94 07/09/17 10:52 36.5 C 75 15 103/49 L 88 L Result Diagrams: 07/09/17 04:32 07/09/17 04:32 - Physical Exam Constitutional: WDWN, no apparent distress Eyes: anicteric sclera Ears, Nose, Mouth, Throat: moist mucous membranes Cardiovascular: regular rate and rhythm, no murmurs, no gallops Respiratory: other (markedly improved breath sounds on right) Gastrointestinal: normoactive bowel sounds, no tenderness, no masses Skin: no edema Psychiatric: not anxious ICD10 Worksheet Patient Problems: Problems Problem Status Onset Acute coronary syndrome Acute Congestive heart failure Acute Dementia Acute Influenza Acute New onset atrial fibrillation Acute
--- NOTE | 2017-07-09 17:30 | HOSPPROG ---
Hospitalist Progress Note Assessment/Plan: Assessment: 82-year-old male presents with paroxysmal atrial fibrillation and acute rapid ventricular response in the setting of pulmonary abscess, large pleural effusion Plan: 1. Paroxysmal atrial fibrillation. New diagnosis, acute rapid ventricular response, most likely provoked in the setting of reduced ejection fraction as well as worsening infection and pleural effusion -appreciate Cardiology consultation -chemically cardioverted with IV diltiazem, continue on metoprolol 25 mg twice daily, up titrate if returns back into a atrial fibrillation or multifocal atrial tachycardia -continue monitor on telemetry 2. Acute systolic congestive heart failure. Ejection fraction is currently 30- 35% with focal wall motion abnormalities indicative of previous anterior myocardial infarction, previous EF 40-45% -symptomatically improving w/ 2.2L removed w/ thora 07/08, will start lasix today and gauge effect -elevate legs, patient very engaged in this -continue on beta-jenn, will adjust to metoprolol succinate or Coreg prior to discharge and possibly repeat Echo to eval whether he experienced acute stunning in setting rapid Afib/severe illness 3. Pulmonary abscess w/ parapneumonic effusion. Present on admission, pleural fluid exudative by light's criteria, d/w Dr. Plaza and we suspect that there is also the CHF transudative component -monitor pleural fluid cx -recent MRSA PNA, likely cause, trial Abx (linezolid) and adjust to IV vanco if not improving (picc line placed today) -appreciate ongoing ID consult 4. Acute hypoxic respiratory failure. Likely 2/2 combination of pleural effusion, CHF, pulm infxn, required up to 10LPM and now at 4LPM s/p thora 5. Chronic encephalopathy. Patient has a limited understanding of his current situation, continued to work with patient and his family to provide optimal care -most likely will require jail facility discharge 6. Acute atelectasis. Left side on chest x-ray, incentive spirometer Diet. Regular Prophylaxis. High risk patient, Lovenox 40 Code. Full Disposition. Anticipated discharge uncertain, patient continues to have high- level of medical complexity secondary to issues outlined above. Subjective: patient reports his heart is strong, he wants his legs elevated Objective: Vital Signs Temp Pulse Resp BP Pulse Ox 36.7 C 76 12 123/63 H 94 07/09/17 15:46 07/09/17 15:46 07/09/17 15:46 07/09/17 15:46 07/09/17 15:46 PT 15.1 SEC (12.0-15.0) H 07/08/17 12:05 INR 1.17 (0.83-1.16) H 07/08/17 12:05 - Physical Exam Constitutional: no apparent distress, not in pain, chronically ill appearing, No uncomfortable Cardiovascular: systolic murmur (I/ at sternum), irregularly irregular, edema (trace-1+ bilat LE), No tachycardia Respiratory: reduced air movement (R side), inspiratory crackles (left base), rhonchi (right on insp), No expiratory wheeze, No bronchial breath sounds Gastrointestinal: normoactive bowel sounds, soft, non-tender abdomen, no palpable masses, No distension Neurologic: AAOx3, sensation intact bilaterally, No weakness (motor 5/5 bilat LE ), No facial droop Psychiatric: interacting appropriately, not anxious, not encephalopathic, thought process linear, poor insight, poor memory, other (great conversationalist) ICD10 Worksheet Patient Problems: Problems Problem Status Onset New onset atrial fibrillation Acute Acute coronary syndrome Acute Congestive heart failure Acute Influenza Acute Dementia Acute
--- NOTE | 2017-07-09 17:55 | ASMTCMCOM ---
CM Note CM Note Notes: 07/09/2017 Management Note Spoke w/Fernando social security specialist from [facility] [phone]. Fernando spoke w/ daughter Della today and had questions about pt progress in hospital and request for palliative care consult. Daughter Della lacks insight into pt condition including his dementia and his complaints re: [facility] and [facility] per Fernando and Case Management. Della is having similar conversations with multiple staff members and not recalling details of previous discussions regarding pt care and d/c poc. Case Management respectfully requests an outpatient palliative consult. [facility] uses [facility] per Fernando. Case Management d/c poc: Remains return to [facility] when medically stable. Pt resides at [facility]. Case Management to follow. Date Signed: 07/09/2017 05:55 PM Electronically Signed By:Sandra Méndez RN
[2017-07-10 05:38] LABS: PLATELET COUNT 328 10^3/uL (150-400)
[2017-07-10] MEDS: METOPROLOL TARTRATE 25 MG TAB PO SCH ×2 (09:47→22:36)
[2017-07-10] MEDS: SODIUM BICARBONATE 650 MG TAB PO SCH ×2 (09:47→22:35)
[2017-07-10] MEDS: ENOXAPARIN 40 MG/0.4 ML SYR SC SCH (09:47)
[2017-07-10] MEDS: ASPIRIN EC 325 MG TAB PO SCH (09:47)
[2017-07-10] MEDS: LINEZOLID 600 MG TAB PO SCH ×2 (09:47→22:37)
[2017-07-10] MEDS: FUROSEMIDE 20 MG TAB PO SCH ×2 (09:47→14:01)
[2017-07-10] MEDS: INSULIN LISPRO 100 UNIT/ML SC SCH ×3 (09:48→17:58)
--- NOTE | 2017-07-10 12:13 | PDCARPN ---
Cardiology Progress Note Chief Complaint: No complaints. Assessment/Plan: Cardiomyopathy: LVEF approximately 30% with regional wall motion abnormalities in the LAD territory. No prior clinical history of myocardial infarction or cardiac symptoms. Suspect that etiology is ischemic. Cannot r/o that this might represent Takotsubo syndrome related to recent stressors from his acute illness. Chronic Systolic CHF: BNP is markedly elevated at 15,200. He had a large right- sided pleural effusion. A thoracentesis on 07/08 removed over 2 L of fluid. This may be partially due to CHF but it is also likely a parapneumonic effusion. - Furosemide started yesterday. - I&O negative by 2400 ml in past 24 Hr. - Needs to be back on MAKSIM-I at some point. - Consider adding aldactone at some point. Paroxysmal Atrial Fibrillation: Maintaining sinus rhythm on beta jenn therapy. - Will need to discuss/initiate systemic anticoagulation for stroke prophylaxis. Will defer this until it is certain that he does not require any further invasive procedures. Hypertension: BP normal on beta jenn alone. Was also on high dose MAKSIM-I as an outpatient Coronary Artery Disease: Atherosclerosis as characterized by incidentally noted coronary calcifications on his chest CT. No anginal symptoms. Modest troponin elevation was most likely a myocardial oxygen supply/demand mismatch related to his atrial fibrillation with rapid ventricular response. - Will plan for a Lexiscan nuclear stress test tomorrow. - His lipid panel demonstrated a total cholesterol of 104 with HDL 21, LDL 63, and triglycerides 103. Will give consideration to low dose statin therapy a later time. 07/10/17 12:22 Objective: Vital Signs (8 Hrs) Temp Pulse Resp BP Pulse Ox 07/10/17 07:54 36.4 C 81 16 111/59 L 90 L Intake/Output (24 Hrs) 07/09/17 07/10/17 07/11/17 05:59 05:59 05:59 Intake Total 850 Output Total 250 Balance 600 Intake: Oral (ml) 850 Output: Urine (ml) 250 Urinal 250 Other: Number of Voids Urinal 2 Result Diagrams: 07/10/17 05:20 07/10/17 05:20 - Physical Exam Constitutional: no apparent distress Eyes: anicteric sclera Ears, Nose, Mouth, Throat: moist mucous membranes Cardiovascular: regular rate and rhythm, no murmurs, no gallops Respiratory: clear to auscultate bilat (anteriorly) Gastrointestinal: normoactive bowel sounds, no tenderness, no masses Skin: no edema Psychiatric: not anxious ICD10 Worksheet Patient Problems: Problems Problem Status Onset New onset atrial fibrillation Acute Acute coronary syndrome Acute Congestive heart failure Acute Influenza Acute Dementia Acute
--- NOTE | 2017-07-10 14:32 | HOSPPROG ---
Hospitalist Progress Note Assessment/Plan: Assessment: 82-year-old male new to my care on 07/10/2017 presents with paroxysmal atrial fibrillation and acute rapid ventricular response in the setting of pulmonary abscess, large pleural effusion #Pulmonary abscess w/ parapneumonic effusion. -pleural fluid cx NGTD -recent MRSA PNA, likely cause,continue linezolid (picc line placed today) -appreciate ongoing ID consult 1. Paroxysmal atrial fibrillation. New diagnosis, acute rapid ventricular response, most likely provoked in the setting of reduced ejection fraction as well as worsening infection and pleural effusion -appreciate Cardiology consultation -chemically cardioverted with IV diltiazem, continue on metoprolol 25 mg twice daily, up titrate if returns back into a atrial fibrillation or multifocal atrial tachycardia -continue monitor on telemetry #. Coronary calcifications seen on chest CT -plan for Lexiscan tomorrow as ordered by Cardiology 2. Acute systolic congestive heart failure. Ejection fraction is currently 30- 35% with focal wall motion abnormalities indicative of previous anterior myocardial infarction, previous EF 40-45% -symptomatically improving w/ 2.2L removed w/ thora 07/08, will start lasix today and gauge effect -elevate legs, patient very engaged in this -continue on beta-jenn, will adjust to metoprolol succinate or Coreg prior to discharge and possibly repeat Echo to eval whether he experienced acute stunning in setting rapid Afib/severe illness #. Acute hypoxic respiratory failure. Likely 2/2 combination of pleural effusion, CHF, pulm infxn, required up to 10LPM and now at 4LPM s/p thora ( improving) 5. Chronic encephalopathy. Patient has a limited understanding of his current situation, continued to work with patient and his family to provide optimal care -most likely will require group home facility discharge 6. Acute atelectasis. Left side on chest x-ray, incentive spirometer Diet. Regular Prophylaxis. High risk patient, Lovenox 40 Code. Full Disposition. DC to snf when medically stable Subjective: no chest pain or sob. feeling better s/p thora. no fever or chills Objective: Vital Signs Temp Pulse Resp BP Pulse Ox 36.7 C 70 12 94/49 L 96 07/10/17 12:00 07/10/17 12:00 07/10/17 12:00 07/10/17 12:00 07/10/17 12:00 Laboratory Results 07/10/17 05:20 07/10/17 05:20 07/09/17 07/10/17 07/11/17 05:59 05:59 05:59 Intake Total 850 Output Total 250 Balance 600 PT 15.1 SEC (12.0-15.0) H 07/08/17 12:05 INR 1.17 (0.83-1.16) H 07/08/17 12:05 - Physical Exam Constitutional: no apparent distress, appears nourished, not in pain Cardiovascular: regular rate and rhythym, no murmur, rub, or gallop Respiratory: no respiratory distress, no rales or rhonchi, clear to auscultation , reduced air movement (bilat bases rt>LT), dullness to percussion (right base) Gastrointestinal: normoactive bowel sounds, soft, non-tender abdomen, no palpable masses Skin: no rashes or abrasions, no fluctuance, no induration ICD10 Worksheet Patient Problems: Problems Problem Status Onset New onset atrial fibrillation Acute Acute coronary syndrome Acute Congestive heart failure Acute Influenza Acute Dementia Acute
--- NOTE | 2017-07-10 16:49 | PCMIDPN ---
Assessment/Plan: Assessment: Right-sided pneumonia secondary to MRSA. Currently on linezolid. Significant presentation with respiratory failure. 2.5 L of pleural fluid removed yesterday. Clinically the patient is doing well. Pathologic review of the fluid shows no malignant cells. Probable parapneumonic effusion. Plan to continue with linezolid. Will reimage tomorrow. Possible need for further pleurocentesis. White blood cell count has normalized. Plan: 1. Continue linezolid. 2. Follow up with imaging to ascertain whether he needs further drainage. This will also help with characterizing the possible abscess in his right lung. 3. Follow clinical course. 07/10/17 17:46 07/10/17 17:49 07/10/17 17:50 Subjective: Patient is resting comfortably in his hospital chair. He denies any new complaints. He does not have any fevers or chills. States he is breathing comfortably. Objective: Linezolid # 10 Vital Signs Temp Pulse Resp BP Pulse Ox 36.6 C 71 12 115/58 L 95 07/10/17 15:53 07/10/17 15:53 07/10/17 15:53 07/10/17 15:53 07/10/17 15:53 Laboratory Results 07/10/17 05:20 07/10/17 05:20 07/09/17 07/10/17 07/11/17 05:59 05:59 05:59 Intake Total 850 480 Output Total 250 200 Balance 600 280 - Physical Exam General Appearance: WD/WN, alert, no apparent distress, non-toxic Respiratory: crackles, No lungs clear, No normal breath sounds, No respiratory distress Cardiac/Chest: regular rate, rhythm, No tachycardia Skin: normal color, warm/dry, No rash Neuro/Psych: alert, normal mood/affect, oriented x 3 ICD10 Worksheet Patient Problems: Problems Problem Status Onset Acute coronary syndrome Acute Congestive heart failure Acute Dementia Acute Influenza Acute New onset atrial fibrillation Acute
[2017-07-11 06:30] LABS: PLATELET COUNT 251 10^3/uL (150-400)
[2017-07-11] MEDS ORDERED: REGADENOSON 0.4 MG/5 ML SYR IVP ONE (09:40)
--- NOTE | 2017-07-11 10:08 | PDCARST ---
CAR Stress Test Results Type of Stress Test: Lexiscan stress test Indication: CHF Description of Procedure: After informed consent was obtained, pt was established to ECG, blood pressure, HR and oximetry monitoring. STRESS EKG AND HEMODYNAMIC DATA. Resting heart rate: 98 BPM. Resting ECG: SR with PACs. Resting blood pressure: 130/72 mmHg. O2 saturation at rest: 98%. Peak heart rate: 96 BPM. Peak blood pressure: 118/62 mmHg. Arrhythmias: occasional PACs. Symptoms: The patient experienced no typical symptoms of angina during stress or recovery. Stress/Infusion ECG: No change in rhythm with no significant ST/T wave changes. Stress/infusion O2 saturation: Impression: Uneventful Lexiscan infusion. Conclusion: Await nuclear images.
[2017-07-11] MEDS: INSULIN LISPRO 100 UNIT/ML SC SCH ×3 (10:48→18:19)
[2017-07-11] MEDS: ENOXAPARIN 40 MG/0.4 ML SYR SC SCH (10:50)
[2017-07-11] MEDS: METOPROLOL TARTRATE 25 MG TAB PO SCH ×2 (10:54→19:44)
[2017-07-11] MEDS: FUROSEMIDE 20 MG TAB PO SCH ×2 (10:54→15:04)
[2017-07-11] MEDS: ASPIRIN EC 325 MG TAB PO SCH (10:55)
[2017-07-11] MEDS: SODIUM BICARBONATE 650 MG TAB PO SCH ×2 (10:56→19:44)
[2017-07-11] MEDS: LINEZOLID 600 MG TAB PO SCH ×2 (10:56→19:44)
--- NOTE | 2017-07-11 11:44 | PCMIDPN ---
Assessment/Plan: # respiratory failure on admission significantly improved. Suspect primary component of CHF and removal of effusion. Patient is down to 3.5 L from 10 L # R-sided PNA due to MRSA with possible early abscess s/p 2+L removal of parapneumonic effusion. Micro from OSH reviewed and only shows S: to vancomycin , Linezolid. No sensi for bactrim, tetra. --check for more pleural fluid and remove then repeat CT --continue linezolid for now, platelets normal but trending down from admit, continue to monitor closely --duration of abx based on repeat CT Medications, D#14 anti-MRSA therapy Linezolid 600 mg p.o. twice daily, start date 06/30/2017 Microbiology 07/08 blood cultures (2) no growth today Subjective: feeling better on 3.5 L O2 supplementation Objective: Vital Signs Temp Pulse Resp BP Pulse Ox 36.3 C 90 24 H 106/56 L 93 07/11/17 10:44 07/11/17 10:44 07/11/17 10:44 07/11/17 10:44 07/11/17 10:44 Laboratory Results 07/11/17 06:24 07/11/17 05:20 07/10/17 07/11/17 07/12/17 05:59 05:59 05:59 Intake Total 850 930 Output Total 250 650 Balance 600 280 - Physical Exam General Appearance: alert, no apparent distress Respiratory: crackles (R), other (decreased bs base R) Neck: supple Cardiac/Chest: regular rate, rhythm Extremities: No pedal edema Abdomen: non-tender, soft Male Genitalia: No acosta Skin: pallor, No rash Neuro/Psych: alert, normal mood/affect - Line/s RUE PICC Lines: No drainage, No erythema - Time Spent With Patient Time Spent with Patient: greater than 35 minutes (care coordinated with Dr. Dominguez) Time Spent with Patient: Greater than 35 minutes spent on this patients care, greater than 50% of time spent counseling, educating, and coordinating care regarding the above mentioned plan. ICD10 Worksheet Patient Problems: Problems Problem Status Onset Acute coronary syndrome Acute Congestive heart failure Acute Dementia Acute Influenza Acute New onset atrial fibrillation Acute
--- NOTE | 2017-07-11 15:24 | ASMTCMCOM ---
CM Note CM Note Notes: Discussed case in morning rounds. The plan remains the same. Pt will return back to [facility] when medically stable. CM to follow. Plan: [facility] Date Signed: 07/11/2017 03:23 PM Electronically Signed By:HIWOT Walters
--- NOTE | 2017-07-11 15:40 | HOSPPROG ---
Hospitalist Progress Note Assessment/Plan: Assessment: 82-year-old male new to my care on 07/10/2017 presents with paroxysmal atrial fibrillation and acute rapid ventricular response in the setting of pulmonary abscess, large pleural effusion #Pulmonary abscess w/ parapneumonic effusion. -pleural fluid cx NGTD -recent MRSA PNA, likely cause,continue linezolid (picc line placed today) -appreciate ongoing ID consult Will plan for repeat thoracentesis tomorrow. Will send fluid for culture, cytology, and cell count. Would recommend repeat CT after thoracentesis to further evaluate for persistent abscess/empyema 1. Paroxysmal atrial fibrillation. New diagnosis, acute rapid ventricular response, most likely provoked in the setting of reduced ejection fraction as well as worsening infection and pleural effusion -appreciate Cardiology consultation -chemically cardioverted with IV diltiazem, continue on metoprolol 25 mg twice daily, up titrate if returns back into a atrial fibrillation or multifocal atrial tachycardia -continue monitor on telemetry #. Coronary calcifications seen on chest CT -Lexiscan done today was negative for acute ischemia but does show evidence of old infarction 2. Acute systolic congestive heart failure. Ejection fraction is currently 30- 35% with focal wall motion abnormalities indicative of previous anterior myocardial infarction, previous EF 40-45% -symptomatically improving w/ 2.2L removed w/ thora 07/08, will start lasix today and gauge effect -elevate legs, patient very engaged in this -continue on beta-jenn, will adjust to metoprolol succinate or Coreg prior to discharge and possibly repeat Echo to eval whether he experienced acute stunning in setting rapid Afib/severe illness #. Acute hypoxic respiratory failure. Likely 2/2 combination of pleural effusion, CHF, pulm infxn, required up to 10LPM and now at 4LPM s/p thora ( improving) 5. Chronic encephalopathy. Patient has a limited understanding of his current situation, continued to work with patient and his family to provide optimal care -most likely will require shelter facility discharge 6. Acute atelectasis. Left side on chest x-ray, incentive spirometer Diet. Regular Prophylaxis. High risk patient, Lovenox 40 Code. Full Disposition. DC to snf when medically stable Subjective: no chest pain. no sob. no fever Objective: Vital Signs Temp Pulse Resp BP Pulse Ox 36.4 C 69 16 123/63 H 98 07/11/17 12:00 07/11/17 12:00 07/11/17 12:00 07/11/17 12:00 07/11/17 12:00 Laboratory Results 07/11/17 06:24 07/11/17 05:20 07/10/17 07/11/17 07/12/17 05:59 05:59 05:59 Intake Total 850 930 Output Total 250 650 Balance 600 280 PT 15.1 SEC (12.0-15.0) H 07/08/17 12:05 INR 1.17 (0.83-1.16) H 07/08/17 12:05 cxr reviewed showing persistent opacification right lung field - Physical Exam Constitutional: no apparent distress, appears nourished, not in pain Cardiovascular: regular rate and rhythym, no murmur, rub, or gallop Respiratory: no respiratory distress, other (dullness to percussion right base with decreased breath sopunds), No expiratory wheeze, No inspiratory crackles Gastrointestinal: normoactive bowel sounds, soft, non-tender abdomen, no palpable masses, No guarding, No rebound Neurologic: AAOx3, sensation intact bilaterally, CN II-XII Intact, facial droop ICD10 Worksheet Patient Problems: Problems Problem Status Onset New onset atrial fibrillation Acute Acute coronary syndrome Acute Congestive heart failure Acute Influenza Acute Dementia Acute
--- NOTE | 2017-07-11 19:34 | PDCARPN ---
Cardiology Progress Note Assessment/Plan: Ischemic Cardiomyopathy: LVEF approximately 30% with regional wall motion abnormalities in the LAD territory without a prior clinical history of myocardial infarction or cardiac symptoms. Chronic Systolic CHF: BNP is markedly elevated at 15,200. He had a large right- sided pleural effusion. A thoracentesis on 07/08 removed over 2 L of fluid. This may be partially due to CHF but it is also likely a parapneumonic effusion. - Furosemide started 24. - Needs to be back on MAKSIM-I at some point. - Consider adding aldactone at some point. Paroxysmal Atrial Fibrillation: Maintaining sinus rhythm on beta jenn therapy. - Will need to discuss/initiate systemic anticoagulation for stroke prophylaxis. Will defer this until it is certain that he does not require any further invasive procedures. Hypertension: BP normal on beta jenn alone. Was also on high dose MAKSIM-I as an outpatient Coronary Artery Disease: Atherosclerosis as characterized by incidentally noted coronary calcifications on his chest CT. No anginal symptoms. Modest troponin elevation was most likely a myocardial oxygen supply/demand mismatch related to his atrial fibrillation with rapid ventricular response. - Lexiscan nuclear stress test today demonstrated a fixed perfusion defect in the LAD territory c/w prior HI and that matches his wall motion abnormalities on echo.. - His lipid panel demonstrated a total cholesterol of 104 with HDL 21, LDL 63, and triglycerides 103. Will give consideration to low dose statin therapy a later time. 07/11/17 19:31 Objective: Vital Signs (8 Hrs) Temp Pulse Resp BP Pulse Ox 07/11/17 16:00 36.7 C 89 16 90/50 L 96 07/11/17 12:00 36.4 C 69 16 123/63 H 98 Intake/Output (24 Hrs) 07/10/17 07/11/17 07/12/17 05:59 05:59 05:59 Intake Total 809 012 2867 Output Total 250 650 Balance 495 170 8090 Intake: Oral (ml) 591 184 3670 Output: Urine (ml) 250 650 Urinal 250 650 Other: Weight 83.2 kg Number of Voids Urinal 2 1 2 Number of Stools Urinal 1 1 Result Diagrams: 07/11/17 06:24 07/11/17 05:20 - Physical Exam Constitutional: no apparent distress Eyes: anicteric sclera Ears, Nose, Mouth, Throat: moist mucous membranes Cardiovascular: regular rate and rhythm, no murmurs, no gallops Respiratory: other (dull at right base) Gastrointestinal: normoactive bowel sounds, no tenderness, no masses Skin: no edema Psychiatric: not anxious ICD10 Worksheet Patient Problems: Problems Problem Status Onset Acute coronary syndrome Acute Congestive heart failure Acute Dementia Acute Influenza Acute New onset atrial fibrillation Acute
[2017-07-12] MEDS: SODIUM BICARBONATE 650 MG TAB PO SCH ×2 (10:08→19:33)
[2017-07-12] MEDS: METOPROLOL TARTRATE 25 MG TAB PO SCH ×2 (10:08→19:32)
[2017-07-12] MEDS: LINEZOLID 600 MG TAB PO SCH ×2 (10:10→19:32)
[2017-07-12] MEDS: FUROSEMIDE 20 MG TAB PO SCH ×2 (10:11→14:45)
[2017-07-12] MEDS: ASPIRIN EC 325 MG TAB PO SCH (10:12)
--- NOTE | 2017-07-12 10:27 | PCMIDPN ---
Assessment/Plan: Assessment: Right-sided pneumonia secondary to MRSA. Currently on linezolid. Significant presentation with respiratory failure. 2.5 L of pleural fluid removed yesterday. Clinically the patient remains clinically stable. Pathologic review of the fluid shows no malignant cells. Probable parapneumonic effusion. Plan to continue with linezolid. Will CT again today to re-evaluate for pulmonary abscess. Possible need for further pleurocentesis. Continue to follow platelet count while on linezolid. I did call [facility] laboratory. He does have an isolate that is sensitive to tetracycline as well as Bactrim. Plan: 1. Continue linezolid. 2. Follow up with CT to ascertain whether he needs further drainage. This will also help with characterizing the possible abscess in his right lung. 3. Follow clinical course. 07/12/17 10:33 Subjective: Patient is resting comfortably in his hospital bed. He is eating well. He denies any new complaint. He is breathing comfortably. Objective: Linezolid # 12 Vital Signs Temp Pulse Resp BP Pulse Ox 36.6 C 87 20 130/70 H 93 07/12/17 09:30 07/12/17 10:08 07/12/17 09:30 07/12/17 10:08 07/12/17 09:30 Laboratory Results 07/11/17 06:24 07/11/17 05:20 07/11/17 07/12/17 07/13/17 05:59 05:59 05:59 Intake Total 930 1570 Output Total 650 Balance 280 1570 - Physical Exam General Appearance: WD/WN, alert, no apparent distress, non-toxic Respiratory: lungs clear, No normal breath sounds (Decreased breath sounds in bilateral bases), No crackles, No wheezing Cardiac/Chest: regular rate, rhythm, No tachycardia Extremities: non-tender, normal inspection Skin: normal color, warm/dry, No rash Neuro/Psych: alert, normal mood/affect, oriented x 3 ICD10 Worksheet Patient Problems: Problems Problem Status Onset Acute coronary syndrome Acute Congestive heart failure Acute Dementia Acute Influenza Acute New onset atrial fibrillation Acute
[2017-07-12] MEDS: INSULIN LISPRO 100 UNIT/ML SC SCH ×3 (10:45→18:02)
--- NOTE | 2017-07-12 11:11 | PDCARPN ---
Cardiology Progress Note Assessment/Plan: Assessment: 1. Chronic Systolic CHF (LVEF 30-35) 2. Paroxysmal Afib with RVR (converted with Diltiazem gtt) 3. CAD with fixed anterior defect on nuclear stress test yesterday 4. Essential hypertension Plan: -Anticoagulation with Lovenox while in the hospital, will need to change to oral anticoagulant at time of discharge in [facility] of 5 -Continue current cardiac medications -repeat BNP 07/12/17 11:03 Subjective: 82 year old male admitted with pneumonia and AFib with RVR. He is feeling well this am. No new complaints Reviewed/Discussed With: multidisciplinary team Time Spent With Patient: 15 minutes Objective: Vital Signs (8 Hrs) Temp Pulse Resp BP Pulse Ox 07/12/17 10:08 87 130/70 H 07/12/17 09:30 36.6 C 85 20 130/70 H 93 07/12/17 04:00 36.7 C 90 16 114/68 97 Intake/Output (24 Hrs) 07/11/17 07/12/17 07/13/17 05:59 05:59 05:59 Intake Total 930 1570 Output Total 650 Balance 280 1570 Intake: Oral (ml) 930 1570 Output: Urine (ml) 650 Urinal 650 Other: Weight 83.2 kg 83 kg Intake Quantity Yes Sufficient Number of Voids Toilet 1 Urinal 1 2 Number of Stools Urinal 1 1 Result Diagrams: 07/11/17 06:24 07/11/17 05:20 - Physical Exam Constitutional: WDWN Neurologic: CN II-XII grossly intact Psychiatric: cooperative, interactive ICD10 Worksheet Patient Problems: Problems Problem Status Onset Acute coronary syndrome Acute Congestive heart failure Acute Dementia Acute Influenza Acute New onset atrial fibrillation Acute
[2017-07-12] MEDS: ENOXAPARIN 80 MG/0.8 ML SYR SC SCH ×2 (11:22→19:33)
[2017-07-12] MEDS ORDERED: IOPAMIDOL (ISOVUE-300) 100 ML BTL ONE (12:10)
--- NOTE | 2017-07-12 16:19 | HOSPPROG ---
Hospitalist Progress Note Assessment/Plan: 82-year-old male who presented with proximal atrial fibrillation with RVR, right side pulmonary abscess and a large right-sided and left-sided pleural effusions. Since admission he has undergone thoracentesis of 2.5 L of transudative fluid felt to be stat a parapneumonic effusion. Outside records indicate probable staph infection felt secondary to an influenza infection. Today is CT scan is planned of the chest to evaluate the possible pulmonary abscess and possible drainage if necessary. Case has been discussed with ID and CT scans have been reviewed by myself. Patient is new to me today -Pulmonary abscess w/ parapneumonic effusion. -pleural fluid cx NGTD -recent MRSA PNA, likely cause,continue linezolid (picc line placed today) -appreciate ongoing ID consult p: CT angio of the chest to evaluate the pulmonary abscess and consideration of drainage if necessary. - Paroxysmal atrial fibrillation. New diagnosis, acute rapid ventricular response, most likely provoked in the setting of reduced ejection fraction as well as worsening infection and pleural effusion. Patient chemically converted on diltiazem and now is stable in sinus rhythm. -Coronary calcifications seen on chest CT -Lexiscan negative for acute ischemia but does show evidence of old infarction -Acute systolic congestive heart failure. Ejection fraction is currently 30-35 % with focal wall motion abnormalities indicative of previous anterior myocardial infarction, previous EF 40-45%. Symptomatic clear the patient is improved post thoracentesis of the right chest. Will continue his beta-jenn therapy. - Acute hypoxic respiratory failure. Likely 2/2 combination of pleural effusion , CHF, pulm infxn, required up to 10LPM and now at 4LPM s/p thora (improving) - Chronic encephalopathy with possible dementia. Patient has a limited understanding of his current situation, continued to work with patient and his family to provide optimal care -most likely will require shelter facility discharge -question of diabetes mellitus: Will order a hemoglobin A1c and evaluate glucose. Diet. Regular Prophylaxis. High risk patient, Lovenox 40 Code. Iron Miner: 45 min. Patient was examined and discussed with Infectious Disease and CT scans were reviewed by myself and with Infectious Disease Subjective: Reports he is feeling much better and denies having chest pain or shortness of breath. His appetite is improving. Objective: Vital Signs Temp Pulse Resp BP Pulse Ox 36.8 C 75 20 111/62 96 07/12/17 13:00 07/12/17 13:00 07/12/17 13:00 07/12/17 13:00 07/12/17 13:00 Laboratory Results 07/11/17 06:24 07/12/17 11:05 07/11/17 07/12/17 07/13/17 05:59 05:59 05:59 Intake Total 930 1570 300 Output Total 650 350 Balance 280 1570 -50 PT 15.1 SEC (12.0-15.0) H 07/08/17 12:05 INR 1.17 (0.83-1.16) H 07/08/17 12:05 - Time Spent With Patient Time Spent with Patient: greater than 35 minutes Time Spent with Patient: Greater than 35 minutes spent on this patients care, greater than 50% of time spent counseling, educating, and coordinating care regarding the above mentioned plan. - Pending Discharge Pending Discharge Within 24 Hours: No Pending Discharge Within 48 Hours: No - Physical Exam Constitutional: no apparent distress, chronically ill appearing Eyes: PERRL, anicteric sclera Ears, Nose, Mouth, Throat: moist mucous membranes, hard of hearing Cardiovascular: regular rate and rhythym, no murmur, rub, or gallop Respiratory: reduced air movement, inspiratory crackles, bronchial breath sounds , dullness to percussion Gastrointestinal: normoactive bowel sounds, soft, non-tender abdomen Genitourinary: no bladder fullness Skin: warm Musculoskeletal: generalized weakness Neurologic: AAOx3, CN II-XII Intact, other (Patient seems to have limited understanding of his condition) Psychiatric: interacting appropriately ICD10 Worksheet Patient Problems: Problems Problem Status Onset Acute coronary syndrome Acute Congestive heart failure Acute Dementia Acute Influenza Acute New onset atrial fibrillation Acute
[2017-07-13 06:08] LABS: PLATELET COUNT 255 10^3/uL (150-400)
[2017-07-13] MEDS: INSULIN LISPRO 100 UNIT/ML SC SCH ×3 (08:04→18:35)
[2017-07-13] MEDS: SODIUM BICARBONATE 650 MG TAB PO SCH ×2 (08:35→21:30)
[2017-07-13] MEDS: FUROSEMIDE 20 MG TAB PO SCH ×2 (08:35→15:30)
[2017-07-13] MEDS: LINEZOLID 600 MG TAB PO SCH ×2 (08:36→21:30)
[2017-07-13] MEDS: METOPROLOL TARTRATE 25 MG TAB PO SCH ×2 (08:36→21:30)
[2017-07-13] MEDS: ENOXAPARIN 80 MG/0.8 ML SYR SC SCH ×2 (08:37→21:30)
[2017-07-13] MEDS: ASPIRIN EC 325 MG TAB PO SCH (08:38)
--- NOTE | 2017-07-13 11:15 | PDCARPN ---
Cardiology Progress Note Assessment/Plan: Assessment: 1. Chronic Systolic CHF (LVEF 30-35) 2. Paroxysmal Afib with RVR (converted with Diltiazem gtt) 3. CAD with fixed anterior defect on nuclear stress test yesterday 4. Essential hypertension Plan: -Anticoagulation with Lovenox while in the hospital, will need to change to oral anticoagulant at time of discharge in CHADS VASC of 5 -Continue metoprolol tartrate 25 mg bid -Decrease aspirin to 81 mg daily -Continue Lasix 20 mg daily -Check BNP with morning labs. 07/12/17 11:03 07/13/17 11:11 Subjective: Mr. Diaz has no new complaints this morning. He denies cp, sob, hernandez, pnd, orthopnea or edema. He remains in NSR on telemetry. He is anticoagulated with Lovenox 80 mg q 12. BP stable. Time Spent With Patient: 20 minutes Objective: Vital Signs (8 Hrs) Temp Pulse Resp BP Pulse Ox 07/13/17 08:36 79 07/13/17 07:29 36.9 C 78 16 106/80 88 L 07/13/17 04:00 36.8 C 75 18 116/59 L 91 L Intake/Output (24 Hrs) 07/12/17 07/13/17 07/14/17 05:59 05:59 05:59 Intake Total 1570 2000 Output Total 700 Balance 1570 1300 Intake: Oral (ml) 1570 2000 Output: Urine (ml) 700 Toilet 700 Other: Weight 83 kg 82 kg Intake Quantity Yes Sufficient Number of Voids Toilet 1 1 Urinal 2 Number of Stools Toilet 1 Urinal 1 Result Diagrams: 07/13/17 05:55 07/13/17 05:55 ICD10 Worksheet Patient Problems: Problems Problem Status Onset Acute coronary syndrome Acute Congestive heart failure Acute Dementia Acute Influenza Acute New onset atrial fibrillation Acute
--- NOTE | 2017-07-13 12:35 | PCMIDPN ---
Assessment/Plan: Assessment: Right-sided pneumonia secondary to MRSA. Currently on linezolid. Significant presentation with respiratory failure. Probable parapneumonic effusion. Plan to continue with linezolid for now. Repeat CT scan showed significant improvement in aeration both on the left side and the right side. The right side remains with lower lobe necrosis and possible abscess. Continue to follow platelet count while on linezolid. Given that he has options to treat with doxycycline or sulfa drugs would probably plan on transitioning him over to oral doxycycline for long-term therapy. Plan: 1. Continue linezolid. 2. Follow clinical course. Subjective: Patient is sitting up in his chair in his hospital room. He states he feels good. No fevers or chills. Breathing comfortably. No significant production in cough. Objective: Linezolid #13 Vital Signs Temp Pulse Resp BP Pulse Ox 36.9 C 79 16 106/80 88 L 07/13/17 07:29 07/13/17 08:36 07/13/17 07:29 07/13/17 07:29 07/13/17 07:29 Laboratory Results 07/13/17 05:55 07/13/17 05:55 07/12/17 07/13/17 07/14/17 05:59 05:59 05:59 Intake Total 1570 2000 Output Total 700 Balance 1570 1300 - Physical Exam General Appearance: WD/WN, alert, no apparent distress, non-toxic Respiratory: lungs clear, No normal breath sounds (Decreased breath sounds right lung), No respiratory distress, No crackles Cardiac/Chest: regular rate, rhythm, No tachycardia Skin: normal color, warm/dry, No rash Neuro/Psych: alert, normal mood/affect, oriented x 3 ICD10 Worksheet Patient Problems: Problems Problem Status Onset Acute coronary syndrome Acute Congestive heart failure Acute Dementia Acute Influenza Acute New onset atrial fibrillation Acute
--- NOTE | 2017-07-13 16:40 | HOSPPROG ---
Hospitalist Progress Note Assessment/Plan: 82-year-old male who presented with proximal atrial fibrillation with RVR, right side pulmonary abscess and a large right-sided and left-sided pleural effusions. Since admission he has undergone thoracentesis of 2.5 L of transudative fluid felt to be stat a parapneumonic effusion. Outside records indicate probable staph infection felt secondary to an influenza infection. CT scan of the chest today showed that there is an organizing abscess in the right lung base with improvement. -Pulmonary abscess w/ parapneumonic effusion. -pleural fluid cx NGTD -recent MRSA PNA, likely cause,continue linezolid (picc line placed today) -appreciate ongoing ID consult plan: Continue linezolid and plan for home antibiotics at [facility] where the patient lives. - Paroxysmal atrial fibrillation. New diagnosis, acute rapid ventricular response, most likely provoked in the setting of reduced ejection fraction as well as worsening infection and pleural effusion. Patient chemically converted on diltiazem and now is stable in sinus rhythm. -Coronary calcifications seen on chest CT -Lexiscan negative for acute ischemia but does show evidence of old infarction -Acute systolic congestive heart failure. Ejection fraction is currently 30-35 % with focal wall motion abnormalities indicative of previous anterior myocardial infarction, previous EF 40-45%. Symptomatic clear the patient is improved post thoracentesis of the right chest. Will continue his beta-jenn therapy. No signs of decompensation. - Acute hypoxic respiratory failure. Likely 2/2 combination of pleural effusion , CHF, pulm infxn, required up to 10LPM and now at 3LPM s/p thora (improving). Pulmonary status is slowly improving. - Chronic encephalopathy with possible dementia. Patient's encephalopathy is progressively improved and I do not detect signs of dementia. He understands his situation and desires to return to [facility]. -most likely will require intermediate facility discharge -question of diabetes mellitus: Hemoglobin A1c is pending although his glucose does require between 6 and 8 U of insulin per day. It is probable this can be managed with oral agents as an outpatient. Diet. Regular Prophylaxis. High risk patient, Lovenox 40 Code. Full Disposition: Discharged to [facility] tomorrow on 07/14 with probable oral antibiotics of doxycycline or Septra per ID Time: 45 min. Patient was examined and discussed with Infectious Disease and CT scans were reviewed by myself and with Infectious Disease Subjective: Reports he is feeling well without chest pain. No nausea or vomiting and he is eating well patient is also ambulatory as walked around the unit with the aid of a 4 wheel walker several times. Objective: Vital Signs Temp Pulse Resp BP Pulse Ox 36.7 C 65 14 105/67 96 07/13/17 12:50 07/13/17 12:50 07/13/17 12:50 07/13/17 12:50 07/13/17 12:50 Laboratory Results 07/13/17 05:55 07/13/17 05:55 07/12/17 07/13/17 07/14/17 05:59 05:59 05:59 Intake Total 1570 2000 360 Output Total 700 Balance 1570 1300 360 PT 15.1 SEC (12.0-15.0) H 07/08/17 12:05 INR 1.17 (0.83-1.16) H 07/08/17 12:05 - Time Spent With Patient Time Spent with Patient: greater than 35 minutes Time Spent with Patient: Greater than 35 minutes spent on this patients care, greater than 50% of time spent counseling, educating, and coordinating care regarding the above mentioned plan. - Pending Discharge Pending Discharge Within 24 Hours: Yes Pending Discharge Date: 07/14/17 Pending Discharge Time: 11:00 - Physical Exam Constitutional: no apparent distress Eyes: PERRL Ears, Nose, Mouth, Throat: moist mucous membranes, hearing normal Cardiovascular: regular rate and rhythym, no murmur, rub, or gallop Respiratory: reduced air movement, inspiratory crackles, bronchial breath sounds , dullness to percussion, rhonchi Gastrointestinal: normoactive bowel sounds, soft, non-tender abdomen, no palpable masses Genitourinary: no bladder fullness Skin: warm Musculoskeletal: full muscle strength Neurologic: AAOx3, CN II-XII Intact ICD10 Worksheet Patient Problems: Problems Problem Status Onset Acute coronary syndrome Acute Congestive heart failure Acute Dementia Acute Influenza Acute New onset atrial fibrillation Acute
[2017-07-14] MEDS: INSULIN LISPRO 100 UNIT/ML SC SCH ×2 (08:38→13:07)
[2017-07-14] MEDS ORDERED: ASPIRIN 81 MG CHEWABLE TAB PO SCH (09:00)
[2017-07-14] MEDS: ENOXAPARIN 80 MG/0.8 ML SYR SC SCH (09:35)
[2017-07-14] MEDS: LINEZOLID 600 MG TAB PO SCH (09:36)
[2017-07-14] MEDS: METOPROLOL TARTRATE 25 MG TAB PO SCH (09:36)
[2017-07-14] MEDS: SODIUM BICARBONATE 650 MG TAB PO SCH (09:37)
[2017-07-14] MEDS: FUROSEMIDE 20 MG TAB PO SCH ×3 (09:37→15:35)
[2017-07-14 12:22] VITALS: BP 103/53; PULSE 68; RESP 18; TEMP 98.3; O2SAT 96
--- NOTE | 2017-07-14 13:09 | PDCARPN ---
Cardiology Progress Note Assessment/Plan: Assessment: 1. Chronic Systolic CHF (LVEF 30-35) 2. Paroxysmal Afib with RVR (converted with Diltiazem gtt) 3. CAD with fixed anterior defect on nuclear stress test yesterday 4. Essential hypertension Plan: -Anticoagulation with Lovenox while in the hospital, will need to change to oral anticoagulant at time of discharge in CHADS VASC of 5 -Change metoprolol tartrate 25 mg bid, to Metoprolol Succinate 25 mg daily -Add Low dose MAKSIM: Lisinopril 2.5 mg daily -Continue Lasix 20 mg daily -Will follow 07/14/17 13:10 Subjective: Mr. Diaz is feelign well. No new complaints. BNP level has dropped from 15, 000 to 4800. Vital signs are stable. Time Spent With Patient: 15 min Objective: Vital Signs (8 Hrs) Temp Pulse Resp BP Pulse Ox 07/14/17 12:00 36.8 C 68 18 103/53 L 96 07/14/17 09:36 87 07/14/17 07:29 36.9 C 76 21 H 125/64 H 97 Intake/Output (24 Hrs) 07/13/17 07/14/17 07/15/17 05:59 05:59 05:59 Intake Total 2000 1640 Output Total 700 Balance 1300 1640 Intake: Oral (ml) 2000 1640 Output: Urine (ml) 700 Toilet 700 Other: Weight 82 kg 82 kg Number of Voids Toilet 1 1 Number of Stools Toilet 1 1 Result Diagrams: 07/13/17 05:55 07/13/17 05:55 ICD10 Worksheet Patient Problems: Problems Problem Status Onset New onset atrial fibrillation Acute Acute coronary syndrome Acute Congestive heart failure Acute Influenza Acute Dementia Acute
--- NOTE | 2017-07-14 13:50 | PDIAF ---
- Diagnosis Diagnosis: new atrial fibrillation, CHF, ongoing treatment for pneumonia, flu Code Status: Full Code - Medication Management Discharge Medications: Medications to Continue on Transfer Acetaminophen [Tylenol 325mg (*)] 650 mg PO Q8 PRN 07/07/17 [Last Taken Unknown] Cholecalciferol Vit D3 [Vitamin D3 (*)] 1,000 units PO DAILY@1030 07/07/17 [ Last Taken Unknown] Cyanocobalamin [Vitamin B12 (*)] 500 mcg PO DAILY@1030 07/07/17 [Last Taken Unknown] Sodium Bicarbonate [Na Bicarb] 1,300 mg PO BID 07/07/17 [Last Taken Unknown] Sodium Chloride [Saline Nasal Mist] 126 ml NS Q2H PRN 07/07/17 [Last Taken Unknown] Apixaban [Eliquis] 5 mg PO BID #1 tab 07/14/17 [Last Taken Unknown] Aspirin [Aspirin 81mg (*)] 81 mg PO DAILY tab.chew 07/14/17 [Last Taken Unknown ] Doxycycline Hyclate [Vibramycin 100 MG (*)] 100 mg PO BID #0 capsule 07/14/17 [ Last Taken Unknown] Furosemide [Lasix 20 MG (*)] 20 mg PO BIDDIUR tab 07/14/17 [Last Taken Unknown] Lisinopril [Zestril 2.5 mg (*)] 2.5 mg PO DAILY tab 07/14/17 [Last Taken Unknown] Metoprolol Succinate Xr [Toprol Xl 25 mg (*)] 25 mg PO DAILY tab 07/14/17 [ Last Taken Unknown] metFORMIN HCL [Metformin HCl] 500 mg PO BID #1 tablet 07/14/17 [Last Taken Unknown] 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 - Orders Services needed: Registered Nurse, Certified Inspector Dials, Master Contribution Solicitor , Physical Therapy, Occupational Therapy Isolation Type: Contact Isolation Diet Recommendation: no restrictions on diet Diet Texture: Regular Texture Diet, Thin Liquids, Meds Whole w/Liquids Weigh Patient: three times weekly - Labs/Radiology BMP Date: 07/21/17 - Follow Up Care Current Providers and Referrals: Patient,NotPresent [Unknown] - As per Instructions Allen Akins MD [Medical Doctor] -
--- NOTE | 2017-07-14 13:57 | PDDCSUM ---
Discharge Summary Discharge Summary: DISCHARGE DIAGNOSES: New onset atrial fibrillation rapid ventricular rate Acute systolic congestive heart failure Ongoing treatment for a Staph aureus pneumonia, now found to have lung abscess and parapneumonic effusion with no empyema Recent influenza A Dementia Diabetes mellitus type 2 Gait instability CONSULTANTS: Dr. Natacha Brantley PROCEDURES: Ultrasound-guided thoracentesis CT scan of chest PICC line insertion Echocardiogram HOSPITAL COURSE SUMMARY: This patient lives at a local nursing facility had recently been diagnosed with influenza and then a Staph aureus pneumonia. He came in here with worsening shortness of breath was found to be in rapid atrial fibrillation with some pulmonary edema. He had an echocardiogram showing ejection fraction of 30% which was decreased when he previously had. At the time of transfer to this hospital he was on linezolid for his pneumonia. The patient is admitted to the hospital placed on droplet precautions. He was treated with ongoing antibiotics, diuretics, and rate control for his atrial fibrillation. This led to rapid improvement in his breathing. His rate is now well controlled on the atrial fibrillation. He has been started on anticoagulation as he does have a high chads Vasc score, and he has tolerated the anticoagulant well. There been no other complications in his care. He is now with no shortness of breath, feels comfortable, eating well, and no sign of complications from his lung abscess. He is felt stable for discharge from the hospital at this time The patient is felt to need ongoing antibiotics because lung abscess for 4 more weeks, but is felt that he can be switched to doxycycline at this time for as MSSA bacteria. PENDING TEST RESULTS: None MEDICATION CHANGES: Change from linezolid to doxycycline 100 mg twice daily for his pneumonia which is planned to go through August 11 Changed from metoprolol twice daily to long-acting metoprolol 25 mg daily Addition of Lasix daily Addition of Eliquis FOLLOW-UP PLAN: He will come back under the care of the staff at the nursing facility where he lives Follow up with Dr. Edgar Brantley in Cardiology Clinic in 2 - 4 weeks Follow up with Dr. Natacha Plaza or Allen Akins in Infectious Disease Clinic in 4 weeks Greater than 35 minutes bedside and care coordination time today
--- NOTE | 2017-07-14 15:56 | ASDISCHSUM ---
Discharge Information Plan Status:SNF Medically Cleared to Leave:07/13/2017 Discharge Date:07/13/2017 CM D/C Disposition:Snf Facility ADT D/C Disposition:Snf Facility Projected Discharge Date:07/14/2017 11:00 AM Transportation at D/C:Medicaid Transportation Discharge Delay Reason: Follow-Up Date:07/14/2017 11:00 AM Discharge Slot: Final Diagnosis: Placement Information Referral Type:*[facility]/SNF Referral ID:[id number] Provider Name:Florence Josephulder Address 1:[address] Address 2: City:[place] Selection Factors: State:[place] Patient Contact Information Contact Name:TERESITA Relationship:Daughter Address: Work Phone: City: [facility] Phone: [facility] Code: Email: Financial Information Financial Class: Primary Plan Desc:MEDICARE INPATIENT Primary Plan Number:[id number] Secondary Plan Desc:MED[place] Secondary Plan Number:[id number] Assessment Information [facility] CM Progress Note CM Note CM Note Notes: 07/08/2017 Case Management Note Phone call with Della daughter MDPOA [phone]. Della reports that mother lives in [place] and is in hospital in [place]. Della herself has MS and Lupus and is feeling overwhelmed with decisions re: care of both parents. Case Management recommended palliative care consult. RN notified. Della requesting change from [facility] b/c of complaints from Dad on the phone. [facility] feels it is d/t pt dementia. Pt is placed at [facility] on [employer] Medicaid per Della in early June. Pt won't be able to switch facilities until 30 day stay is completed at [facility]. Prior to [facility] Della reported pt was living at [facility]. Case Management d/c poc: return to [facility] unless able to switch to new facility. Case Management to follow. Date Signed: 07/08/2017 05:00 PM Electronically Signed By:Sandra Méndez RN [facility] CM Progress Note CM Note CM Note Notes: 07/09/2017 Management Note Spoke w/Fernando social work manager from [facility] [phone]. Fernando spoke w/ daughter Della today and had questions about pt progress in hospital and request for palliative care consult. Daughter Della lacks insight into pt condition including his dementia and his complaints re: [facility] and [facility] per Fernando and Case Management. Della is having similar conversations with multiple staff members and not recalling details of previous discussions regarding pt care and d/c poc. Case Management respectfully requests an outpatient palliative consult. [facility] uses [facility] per Fernando. Case Management d/c poc: Remains return to [facility] when medically stable. Pt resides at [facility]. Case Management to follow. Date Signed: 07/09/2017 05:55 PM Electronically Signed By:Sandra Méndez RN [facility] CM Progress Note CM Note CM Note Notes: Discussed case in morning rounds. The plan remains the same. Pt will return back to [facility] when medically stable. CM to follow. Plan: [facility] Date Signed: 07/11/2017 03:23 PM Electronically Signed By:HIWOT Walters Case Management Discharge Plan Note Case Management Discharge Discharge Order Complete? Answers: Yes Patient to Obtain Answers: Other Notes: [facility] Medications Transportation Arranged Answers: [facility] Stretcher Transport will Pick (Date 07/14/2017 04:00 PM & Time) Case Management Transport Answers: Yes Form Complete Discharge Comments Notes: Pt discharging back to [facility] today. Medicaid transport arranged through [facility] - unable to reach [place] for confirmation # after 11+ minute wait. Informed [facility]. [facility] and [facility] reminded of MRSA contact precautions. D/C orders sent via [employer]. Date Signed: 07/14/2017 03:55 PM Electronically Signed By:MARIAM Esquivel Intervention Information Intervention Type:CHERYL-Signed Date of Service:07/08/2017 10:29 AM Patient Type:Observation Staff Member:Clara Walton Hours: Discipline: Severity: Comment: Intervention Type:TAL-Signed Date of Service:07/14/2017 02:31 PM Patient Type:Inpatient Staff Member:Clara Walton Hours: Discipline: Severity: Comment:
--- NOTE | 2017-07-14 17:17 | PCMIDPN ---
Assessment/Plan: Assessment: Right-sided pneumonia secondary to MRSA. Currently on linezolid. Will switch over to oral doxycycline 100 mg twice daily to continue treatment. Will follow up in 3-4 weeks in office. Plan: 1. Discontinue linezolid. Start doxycycline 100 mg p.o. twice daily. 2. Stable for discharge. Follow-up in office in 3-4 weeks.. 07/14/17 17:15 Subjective: Patient is sitting in his hospital room. No particular new complaint. States he is breathing well. No fevers or chills. No cough. Objective: linezolid # 14 Vital Signs Temp Pulse Resp BP Pulse Ox 36.8 C 68 18 103/53 L 96 07/14/17 12:00 07/14/17 12:00 07/14/17 12:00 07/14/17 12:00 07/14/17 12:00 Laboratory Results 07/13/17 05:55 07/13/17 05:55 07/13/17 07/14/17 07/15/17 05:59 05:59 05:59 Intake Total 2000 1640 Output Total 700 Balance 1300 1640 - Physical Exam General Appearance: WD/WN, alert, no apparent distress, non-toxic Respiratory: lungs clear, No normal breath sounds (Decreased breath sounds right base), No crackles Cardiac/Chest: regular rate, rhythm, No tachycardia Skin: normal color, warm/dry, No rash Neuro/Psych: alert, normal mood/affect, oriented x 3 ICD10 Worksheet Patient Problems: Problems Problem Status Onset Acute coronary syndrome Acute Congestive heart failure Acute Dementia Acute Influenza Acute New onset atrial fibrillation Acute
[2017-07-14] MEDS ORDERED: DOXYCYCLINE HYCLATE 100 MG CAP/TAB PO SCH (21:00)
[2017-07-15] MEDS ORDERED: METOPROLOL SUCCINATE XR 25 MG TAB PO SCH (09:00)
[2017-07-15] MEDS ORDERED: LISINOPRIL 2.5 MG TAB PO SCH (09:00)
== END 2017-07-14 16:11 | DRG 308 ==
LOC: EDUNIT# → F2W 20:57 → OBSVTOIN 07-09 09:47
PROVIDERS: ADMIT Student in an Organized Health Care Education/Training Program; ATTEND Student in an Organized Health Care Education/Training Program
PROC: 0W9B3ZX Drainage of Left Pleural Cavity, Percutaneous Approach, Diagnostic (ICD-10-PCS; 2017-07-08)
PROC: 02HV33Z Insertion of Infusion Device into Superior Vena Cava, Percutaneous Approach (ICD-10-PCS; principal; 2017-07-09)
DX: I48.0 Paroxysmal atrial fibrillation (principal); I50.21 Acute systolic (congestive) heart failure; J85.1 Abscess of lung with pneumonia; J90 Pleural effusion, not elsewhere classified; B95.61 Methicillin susceptible Staphylococcus aureus infection as the cause of diseases classified elsewhere; E11.9 Type 2 diabetes mellitus without complications; F03.90 Unspecified dementia, unspecified severity, without behavioral disturbance, psychotic disturbance, mood disturbance, and anxiety
CPT/HCPCS: 92526-GN; 92610-GN; 97110-GP; 97116-GP; 97161-GP; 97530-GP; A9500; C1751; G0378; G8978-GP-CK; G8979-GP-CI; G8996-GN-CH; G8996-GN-CI; G8997-GN-CI; G8998-GN-CH; J1650; J1815; J2543; J2785; Q9967

== ENCOUNTER → 2017-10-20 | Outpatient (CLI) | payer OTHER, MEDICAID | LOC: BHFA 14:45 | PROVIDERS: ATTEND Internal Medicine Cardiovascular Disease | DX: I42.9 Cardiomyopathy, unspecified (principal) ==

== ENCOUNTER → 2017-12-30 | Outpatient (CLI) | payer OTHER, MEDICAID | LOC: FIMAGING 13:35 | PROVIDERS: ATTEND Family Medicine | DX: J98.6 Disorders of diaphragm (principal); R93.3 Abnormal findings on diagnostic imaging of other parts of digestive tract; Z87.09 Personal history of other diseases of the respiratory system ==

== ENCOUNTER 2018-02-28 10:28 | Inpatient (IN) | payer OTHER, MEDICAID ==
--- NOTE | 2018-02-28 10:34 | EDPHY ---
H & P Time Seen by Provider: 02/28/18 10:28 - Medical/Surgical History Hx Asthma: No Hx Chronic Respiratory Disease: No Hx Diabetes: Yes Hx Cardiac Disease: No Hx Renal Disease: No Hx Cirrhosis: No Hx Alcoholism: No Hx HIV/AIDS: No Hx Splenectomy or Spleen Trauma: No Other PMH: diabetes, dematitis, dementia, htn, hypo-osmolarlity, hyponatrimia, hypothyroidism, chronic back pain. - Social History Smoking Status: Never smoked Constitutional: Initial Vital Signs Temperature (C) 37.4 C 02/28/18 10:33 Heart Rate 94 02/28/18 10:33 Respiratory Rate 16 02/28/18 10:33 Blood Pressure 176/74 H 02/28/18 10:33 O2 Sat (%) 94 02/28/18 10:33 O2 Delivery Mode Room Air Allergies/Adverse Reactions: No Known Allergies Allergy (Verified 07/07/17 16:17) Home Medications: Medication Instructions Recorded Acetaminophen [Tylenol 325mg (*)] 650 mg PO Q8 PRN 07/07/17 Cholecalciferol Vit D3 [Vitamin D3 1,000 units PO DAILY@1030 07/07/17 (*)] Cyanocobalamin [Vitamin B12 (*)] 500 mcg PO DAILY@1030 07/07/17 Sodium Bicarbonate [Na Bicarb] 1,300 mg PO BID 07/07/17 Sodium Chloride [Saline Nasal Mist] 126 ml NS Q2H PRN 07/07/17 Apixaban [Eliquis] 5 mg PO BID #1 tab 07/14/17 Aspirin [Aspirin 81mg (*)] 81 mg PO DAILY tab.chew 07/14/17 Doxycycline Hyclate [Vibramycin 100 mg PO BID #0 capsule 07/14/17 100 MG (*)] Furosemide [Lasix 20 MG (*)] 20 mg PO BIDDIUR tab 07/14/17 Lisinopril [Zestril 2.5 mg (*)] 2.5 mg PO DAILY tab 07/14/17 Metoprolol Succinate Xr [Toprol Xl 25 mg PO DAILY tab 07/14/17 25 mg (*)] metFORMIN HCL [Metformin HCl] 500 mg PO BID #1 tablet 07/14/17 Medical Decision Making ED Course/Re-evaluation: CHIEF COMPLAINT: Low sodium levels HISTORY OF PRESENT ILLNESS: The patient is an 83 y/o male with a history of hyponatremia, diabetes and hypertension arriving via EMS complaining of dizziness. For the last several days the patient has had multiple dizziness episodes. The patient saw his PCP yesterday who did labs which revealed the patient's sodium was 123. His PCP would like this patient to be admitted for intermittent hyponatremia. He denies chest pain, shortness of breath, abdominal pain, urinary or bowel complaints, numbness, paresthesias, fevers. REVIEW OF SYSTEMS: A comprehensive 10 system review of systems is otherwise negative aside from elements mentioned in the history of present illness and medical decision making. PHYSICAL EXAM: HR, BP, O2 Sat, RR. Temp noted General Appearance: Alert, well hydrated, appropriate, and non-toxic appearing. Head: Atraumatic without scalp tenderness or obvious injury Eyes: Pupils equal, round, reactive to light and accommodation, EOMI, no trauma , no injection. Ears: Clear bilaterally, no perforation, normal landmarks Nose: Atraumatic, no rhinorrhea, clear. Throat: There is no erythema or exudates, no lesions, normal tonsils, mucus membranes moist. Neck: Supple, nontender, no lymphadenopathy. Respiratory: No retractions, no distress, no wheezes, and no accessory muscle use. Lungs are clear to auscultation bilaterally. Cardiovascular: Regular rate and rhythm, no murmurs, rubs, or gallops. Bilateral carotid, radial, dorsalis pedis, and posterior tibial pulses intact. Good capillary refill all extremities. Gastrointestinal: Abdomen is soft, nontender, non-distended, no masses, no rebound, no guarding, no peritoneal signs. Musculoskeletal: Normal active ROM of all extremities, atraumatic. Neurological: Alert, appropriate, and interactive. The patient has normal DTRs and non-focal cranial nerves, motor, sensory, and cerebellar exam. Skin: No rashes, good turgor, no nodules on palpation. Past medical history: Diabetes, dermatitis, dementia, hypertension, hypo- osmolality, hyponatremia, hypothyroidism, chronic back pain Past surgical history: Denies Family history: Denies Social history: Resides at [place], single, retired DIAGNOSTICS/PROCEDURES/CRITICAL CARE TIME: Not indicated. DIFFERENTIAL DIAGNOSIS: The differential diagnosis for the patient's dizziness included but was not limited to hyponatremia, electrolyte abnormality, peripheral and central causes of vertigo, orthostatic causes including dehydration, cardiogenic and neurogenic causes, and blood loss. MEDICAL DECISION MAKING: The patient is an 83 y/o male with a history of hyponatremia, diabetes, and hypertension arriving via EMS presenting with dizziness and hyponatremia. Yesterday the patient saw his PCP and had a sodium level of 123. The patient has a normal physical exam. Labs ordered. I have also discussed plan for probable admission, which he is comfortable with. 1134: Patient's sodium is 126; he will need to be admitted for dizziness and hyponatremia. 1136: Consulted with hospitalist service, Dr. Dowling accepts admission of this patient. 1140: Reassessed patient and discussed laboratory findings. He remains comfortable with plan for admission. - Data Points Laboratory Results: Laboratory Results 02/28/18 10:36 02/28/18 10:36 02/28/18 02/28/18 02/28/18 11:00 10:40 10:36 WBC RBC Hgb POC Hgb 14.3 gm/dL gm/dL (13.7-17.5) Hct POC Hct 42 % % (40-51) MCV MCH MCHC RDW Plt Count MPV Neut % (Auto) Lymph % (Auto) [place] % (Auto) Eos % (Auto) Baso % (Auto) Nucleat RBC Rel Count Absolute Neuts (auto) Absolute Lymphs (auto) Absolute Monos (auto) Absolute Eos (auto) Absolute Basos (auto) Absolute Nucleated RBC Immature Gran % Immature Gran # POC Sodium 126 mEq/L L mEq/L (135-145) Sodium 127 mEq/L L mEq/L (135-145) POC Potassium 4.6 mEq/L mEq/L (3.3-5.0) Potassium 4.9 mEq/L mEq/L (3.3-5.0) POC Chloride 89 mEq/L L mEq/L (97-110) Chloride 89 mEq/L L mEq/L (97-110) Carbon Dioxide 27 mEq/l mEq/l (22-31) Anion Gap 11 mEq/L mEq/L (8-16) POC BUN 18 mg/dL mg/dL (7-23) BUN 19 mg/dL mg/dL (7-23) Creatinine 0.8 mg/dL mg/dL (0.7-1.3) POC Creatinine 0.9 mg/dL mg/dL (0.7-1.3) Estimated GFR > 60 Glucose 123 mg/dL H mg/dL (70-100) POC Glucose 125 mg/dL H mg/dL (70-100) Serum Osmolality Pending Calcium 9.3 mg/dL mg/dL (8.5-10.4) Urine Color YELLOW Urine Appearance CLEAR Urine pH 7.0 (5.0-7.5) Ur Specific [place] 1.006 (1.002-1.030) Urine Protein NEGATIVE (NEGATIVE) Urine Ketones NEGATIVE (NEGATIVE) Urine Blood NEGATIVE (NEGATIVE) Urine Nitrate NEGATIVE (NEGATIVE) Urine Bilirubin NEGATIVE (NEGATIVE) Urine Urobilinogen NEGATIVE EU EU (0.2-1.0) Ur Leukocyte Esterase NEGATIVE (NEGATIVE) Urine RBC 1-3 /hpf /hpf (0-3) Urine WBC 1-3 /hpf /hpf (0-3) Ur Epithelial Cells NONE SEEN /lpf /lpf (NONE-1+) Urine Osmolality Pending Ur Random Creatinine Pending Ur Random Sodium Pending Ur Random Potassium Pending Urine Glucose NEGATIVE (NEGATIVE) 02/28/18 10:36 WBC 8.46 10^3/uL 10^3/uL (3.80-9.50) RBC 4.35 10^6/uL L 10^6/uL (4.40-6.38) Hgb 12.3 g/dL L g/dL (13.7-17.5) POC Hgb Hct 36.6 % L % (40.0-51.0) POC Hct MCV 84.1 fL fL (81.5-99.8) MCH 28.3 pg pg (27.9-34.1) MCHC 33.6 g/dL g/dL (32.4-36.7) RDW 18.4 % H % (11.5-15.2) Plt Count 218 10^3/uL 10^3/uL (150-400) MPV 8.7 fL fL (8.7-11.7) Neut % (Auto) 69.6 % % (39.3-74.2) Lymph % (Auto) 16.7 % % (15.0-45.0) [place] % (Auto) 11.5 % % (4.5-13.0) Eos % (Auto) 1.3 % % (0.6-7.6) Baso % (Auto) 0.5 % % (0.3-1.7) Nucleat RBC Rel Count 0.0 % % (0.0-0.2) Absolute Neuts (auto) 5.90 10^3/uL 10^3/uL (1.70-6.50) Absolute Lymphs (auto) 1.41 10^3/uL 10^3/uL (1.00-3.00) Absolute Monos (auto) 0.97 10^3/uL H 10^3/uL (0.30-0.80) Absolute Eos (auto) 0.11 10^3/uL 10^3/uL (0.03-0.40) Absolute Basos (auto) 0.04 10^3/uL 10^3/uL (0.02-0.10) Absolute Nucleated RBC 0.00 10^3/uL 10^3/uL (0-0.01) Immature Gran % 0.4 % % (0.0-1.1) Immature Gran # 0.03 10^3/uL 10^3/uL (0.00-0.10) POC Sodium Sodium POC Potassium Potassium POC Chloride Chloride Carbon Dioxide Anion Gap POC BUN BUN Creatinine POC Creatinine Estimated GFR Glucose POC Glucose Serum Osmolality Calcium Urine Color Urine Appearance Urine pH Ur Specific [place] Urine Protein Urine Ketones Urine Blood Urine Nitrate Urine Bilirubin Urine Urobilinogen Ur Leukocyte Esterase Urine RBC Urine WBC Ur Epithelial Cells Urine Osmolality Ur Random Creatinine Ur Random Sodium Ur Random Potassium Urine Glucose Point of Care Test Results: Chemistry 02/28/18 10:40 POC Sodium 126 mEq/L L mEq/L (135-145) POC Potassium 4.6 mEq/L mEq/L (3.3-5.0) POC Chloride 89 mEq/L L mEq/L (97-110) POC BUN 18 mg/dL mg/dL (7-23) POC Creatinine 0.9 mg/dL mg/dL (0.7-1.3) POC Glucose 125 mg/dL H mg/dL (70-100) ISTAT H&H 02/28/18 10:40 POC Hgb 14.3 gm/dL gm/dL (13.7-17.5) POC Hct 42 % % (40-51) Departure - Departure Disposition: [facility] Acute Clinical Impression: Hyponatremia, Dizziness Condition: Fair Referrals: Carol Ann Cosme MD [Primary Care Provider] - As per Instructions Report Scribed for: Allen Sena Report Scribed by: Rosalina Rasmussen Date of Report: 02/28/18 Time of Report: 10:35
[2018-02-28 10:46] LABS: PLATELET COUNT 218 10^3/uL (150-400)
[2018-02-28] MEDS ORDERED: ACETAMINOPHEN 325 MG TAB PO PRN ×2 (12:57→12:58)
[2018-02-28] MEDS ORDERED: ONDANSETRON 4 MG/2 ML VIAL IVP PRN (12:58)
[2018-02-28] MEDS ORDERED: ONDANSETRON DISINTEGRATING 4 MG TAB PO PRN (12:58)
--- NOTE | 2018-02-28 13:57 | GHP ---
DATE OF ADMISSION: 02/28/2018 Mr. Diaz is a pleasant 83-year-old gentleman with a history of diabetes, atrial fibrillation, inter mittent hyponatremia, low normal ejection fraction with systolic heart failure, history of MSSA pneum onia, who saw his primary care physician for regularly scheduled appointment yesterday and had a sodi um drawn that was 123. At that point in time, the patient was complaining of dizziness. He said his dizziness actually resolved with taking of his medicines this morning. He denies trouble with his g ait. He lives at [facility]. He says the food is terrible, and he is unable to eat it. He is perse verating about the artificial eggs that he says landed a nurse there in the hospital for a month. He takes sodium bicarbonate tablets. He does not take diuretics. He has a history of ejection fract ion of 30% but he has not had heart failure symptoms of late. His blood sugar is 125 today. The pat ient denies dizziness, confusion, or seizures. He has hypothyroidism. Unclear when his last TSH was checked. We have a TSH value of 14.9 in June of this year. REVIEW OF SYSTEMS: Complete 10-point review of systems conducted and negative except as noted in the HPI. PAST MEDICAL HISTORY: Diabetes. Systolic heart failure with an EF of 35% without heart failure symp toms. Chart history of dementia. He appears to have intact memory for me. Hypothyroidism, hyperten blaise, history of staph pneumonia, history of "mini strokes." ALLERGIES: No known drug allergies. HOME MEDICATIONS: Tylenol, apixaban, vitamin D, vitamin B12, iron, levothyroxine, lisinopril, metfor min, metoprolol, sodium bicarbonate. SOCIAL HISTORY: No tobacco, no alcohol. Lives at [facility]. Originally from [place], [place]. FAMILY HISTORY: Parents . PHYSICAL EXAMINATION: PRESENTING VITALS: Temp 37.4, blood pressure 176/74, pulse 94, breathing 16 t imes a minute, 94% on room air. GENERAL: No acute distress. Conversant. HEENT: Sclerae anicteric . Oropharynx clear. Mucous membranes are moist. NECK: Supple, without lymphadenopathy or JVD. ALEKSANDRA NGS: Clear to auscultation bilaterally. HEART: S1, S2. ABDOMEN: Soft, nontender, nondistended. LOWER EXTREMITIES: Without edema. Calves nontender. SKIN: Without rash. NEUROLOGIC: Nonfocal. LABORATORY DATA: Sodium 127, potassium 4.9, chloride 89, bicarb 27. BUN 19, creatinine 0.8. Glucos e 123. Serum osms are low to 65. UA is negative. Urine osms are 293, which is low-lillie. White coun t 8.5; hematocrit 36.6, normal; platelets 218,000. There is no imaging. I discussed the case with Dr. Allen Sena. I reviewed previous records. ASSESSMENT/PLAN: 83-year-old gentleman with hyponatremia. 1. Hyponatremia. 123 is a fairly low value. It is 126 today. The patient is euvolemic with low ur ine and serum osms. I note that he takes serum sodium bicarb as an outpatient. I wonder if he does not have a component of poor solute intake. This is really the only logical explanation. This does not appear to be consistent with syndrome of inappropriate antidiuretic hormone given his high urine osms. Will give a liter of normal saline and follow. Will also check a TSH for completeness sake. 2. Heart failure. Patient is clinically not in heart failure. I will repeat an echocardiogram. I suspect that EF occurred during a hospitalization with a lot of medical complexity, and I wonder if i t was not a temporary phenomenon. 3. Diabetes. Will continue his metformin. 4. Hypertension. Will continue his metoprolol and lisinopril. 5. Prophylaxis. Therapeutically anticoagulated. 6. Atrial fibrillation, clinically in sinus. DISPOSITION: Observation status. /[id number]/MODL
[2018-02-28] MEDS: metFORMIN HCL 500 MG TAB PO SCH (18:40)
[2018-02-28] MEDS: APIXABAN 5 MG TAB PO SCH (21:13)
[2018-02-28] MEDS: SODIUM BICARBONATE 650 MG TAB PO SCH (21:14)
[2018-02-28] MEDS: DOCUSATE SODIUM 100 MG CAP PO SCH (21:14)
[2018-03-01] MEDS: LEVOTHYROXINE 88 MCG TAB PO SCH (05:26)
[2018-03-01] MEDS: metFORMIN HCL 500 MG TAB PO SCH ×2 (07:40→18:32)
--- NOTE | 2018-03-01 08:55 | ASMTCMCOM ---
CM Note CM Note Notes: 83yr old male admitted for Hyponatremia, Dizziness. He has a Hx of Afib, ACS, CHF, DM, EF=35%, Hypothyroid, Dementia. Patient lives at [place]. His daughter Della is his MPOA. Patient to return to [facility] on discharge. Date Signed: 03/01/2018 08:54 AM Electronically Signed By:Laquita Camacho LCSW
[2018-03-01] MEDS ORDERED: FERROUS SULFATE 140 MG TAB.ER PO SCH (09:00)
[2018-03-01] MEDS: DOCUSATE SODIUM 100 MG CAP PO SCH ×2 (09:05→21:49)
[2018-03-01] MEDS: LISINOPRIL 2.5 MG TAB PO SCH (10:11)
[2018-03-01] MEDS: METOPROLOL SUCCINATE XR 25 MG TAB PO SCH (10:11)
[2018-03-01] MEDS: CHOLECALCIFEROL VIT D3 1,000 UNITS TAB PO SCH (10:11)
[2018-03-01] MEDS: CYANO/VITAMIN B12 1000 MCG TAB PO SCH (10:12)
[2018-03-01] MEDS: APIXABAN 5 MG TAB PO SCH ×2 (10:12→21:49)
[2018-03-01] MEDS: SODIUM BICARBONATE 650 MG TAB PO SCH (10:12)
--- NOTE | 2018-03-01 14:11 | HOSPPROG ---
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 denies confusion Objective: Vital Signs Temp Pulse Resp BP Pulse Ox 36.7 C 76 12 148/79 H 97 03/01/18 11:52 03/01/18 11:52 03/01/18 11:52 03/01/18 11:52 03/01/18 11:52 Laboratory Results 03/01/18 05:00 02/28/18 03/01/18 03/02/18 05:59 05:59 05:59 Intake Total 300 Balance 300 - Physical Exam Constitutional: no apparent distress, appears nourished Eyes: PERRL, anicteric sclera Ears, Nose, Mouth, Throat: moist mucous membranes, hearing normal Cardiovascular: regular rate and rhythym, no murmur, rub, or gallop Respiratory: no respiratory distress, no rales or rhonchi Gastrointestinal: normoactive bowel sounds, soft, non-tender abdomen Genitourinary: no bladder fullness, No acosta in urethra Skin: warm, normal color Musculoskeletal: full muscle strength Neurologic: AAOx3 ICD10 Worksheet Patient Problems: Problems Problem Status Onset Dizziness Acute Hyponatremia Acute Acute coronary syndrome Acute Congestive heart failure Acute Dementia Acute Influenza Acute New onset atrial fibrillation Acute
--- NOTE | 2018-03-01 14:54 | ECHO ---
[email or web address] [address] Main: [phone] Fax: Transthoracic Echocardiogram Name: ELIJAH GUTIERREZ MR#: [id number] Study Date: 03/01/2018 Study Time: 11:02 AM Date of : 1935 Age: 83 year(s) Height: 182.9 cm (72 in.) Weight: 86.18 kg (190 lb.) BSA: 2.08 m2 Gender: Male Examination: Echo Indication: h/o low EF, hyponatremia Image Quality: Technically Difficult Contrast: Requested by: Jose Martin Dowling BP: 121 mmHg/64 mmHg Heart Rate: Rhythm: Indication: h/o low EF, hyponatremia Procedure Staff Referral Nurse: Amirah Araujo [facility] Reading Physician: Sid Rai MD Requesting Provider: Conclusions: Normal size left ventricle. Mild concentric LV hypertrophy. Mildly reduced systolic LV function. EF is 50 %. Mild apical and distal anterior wall hypokinesis. There is paradoxic septal motion suggestive of bundle branch block, paced cardiac rhythm, or prior cardiac surgery. Grade 1 diastolic dysfunction (abnormal relaxation). Normal RV function. No pericardial effusion. Measurements: Chambers Valvular Assessment AV/MV Valvular Assessment TV/PV Normal Normal Normal Name Value Range Name Value Range Name Value Range Ao Shanon (MM): 3.2 cm (2.2 cm-3.7 AV Vmax: 1.04 m/s (1 m/s-1.7 PV Vmax: 0.79 m/s (0.6 m/s-0.9 cm) m/s) m/s) IVSd (2D): 1.1 cm (0.6 cm-1.1 AV maxP mmHg ( - ) PV PGmax: 3 mmHg ( - ) cm) LVOT Vmax: 0.72 m/s (0.7 m/s-1.1 LVDd (2D): 4.0 cm (4.2 cm-5.9 m/s) cm) CHRISS (Vmax): 2.6 cm2 ( - ) LVDs (2D): 2.7 cm (2.1 cm-4 MV E Vmax: 0.80 m/s ( - ) cm) MV A Vmax: 1.15 m/s ( - ) LVPWd (2D): 1.1 cm (0.6 cm-1 MV E/A: 0.70 ( - ) cm) LVOTd 2.2 cm 2.2 cm mm LVEF (BP): 50 % (>=55 %) RVDd(2D): 1.6 cm (1.9 cm-3.8 cmmm) Patient: ELIJAH GUTIERREZ Study Date: 03/01/2018 Page 1 of 2 11:02 AM Continued Measurements: Chambers Valvular Assessment AV/MV Name Value Name Value LADs Lon.5 cm MV DecTime: 151 m/s LA Area: 11.8 cm2 MV E' Septal: 0.04 m/s LA Volume: 29 ml MV E/E' Septal: 19.00 LA Volume Index: 13.9 ml/m2 MV E/E' Lateral: 9.90 RA Area: 6.8 cm2 Additional Vessels Name Value Ao Ascendin.0 cm Findings: Left Ventricle: Normal size left ventricle. Mild concentric LV hypertrophy. Mildly reduced systolic LV function. EF is 50 %. Mild apical and distal anterior wall hypokinesis. There is paradoxic septal motion suggestive of bundle branch block, paced cardiac rhythm, or prior cardiac surgery. Grade 1 diastolic dysfunction (abnormal relaxation). Right Ventricle: Normal size right ventricle. Normal RV function. Left Atrium: The left atrium is normal in size. Right Atrium: The right atrium is normal in size. Mitral Valve: The mitral valve is normal in appearance and function. Mild mitral valve regurgitation is present. No mitral stenosis is present. Aortic Valve: The aortic valve is tri-leaflet. There is no significant aortic valve regurgitation. No aortic valve stenosis is present. Tricuspid Valve: The tricuspid valve is normal in appearance and function. Trivial tricuspid valve regurgitation. Pulmonary artery pressure is not obtained due to inadequate TR jet. Pulmonic Valve: The pulmonic valve is normal in appearance and function. Trivial pulmonic valve regurgitation. There is no pulmonic stenosis seen. Aorta: Normal size aortic root measuring 3.2 cm. Normal size ascending aorta measuring 3.0 cm. IVC: The IVC is not visualized. Pericardium: No pericardial effusion. There is pericardial fat. (No Signature Object) Patient: ELIJAH GUTIERREZ Study Date: 03/01/2018 Page 2 of 2 11:02 AM [id number]
--- NOTE | 2018-03-01 16:15 | PDMN ---
Medical Necessity Medical necessity: [facility] [id number] electrolyte disorder: 83 y/o w/ hyponatremia Na+ 127 (baseline 130), euvolemia and low urine and serum osmolality, c/o dizziness. IV tx, hyponatremia worsened to 123, increase salt tabs and repeat labs in am, echo pending, PT/OT eval ordered. Hx diabetes, afib, intermittent hyponatremia, systolic HF, MSSA pneumonia, dementia, HTN. Change to IP status @ 1405 per MD order for ongoing monitoring and tx of hyponatremia.
[2018-03-01] MEDS: FERROUS SULFATE 140 MG TAB.ER PO SCH (17:36)
[2018-03-01] MEDS: SODIUM CHLORIDE 1,000 MG TAB PO SCH (18:37)
[2018-03-02] MEDS: LEVOTHYROXINE 88 MCG TAB PO SCH (05:33)
[2018-03-02] MEDS: SODIUM CHLORIDE 1,000 MG TAB PO SCH ×3 (09:07→18:00)
[2018-03-02] MEDS: metFORMIN HCL 500 MG TAB PO SCH ×2 (09:07→17:55)
[2018-03-02] MEDS: APIXABAN 5 MG TAB PO SCH ×2 (10:14→20:19)
[2018-03-02] MEDS: CYANO/VITAMIN B12 1000 MCG TAB PO SCH (10:14)
[2018-03-02] MEDS: DOCUSATE SODIUM 100 MG CAP PO SCH ×2 (10:15→20:19)
[2018-03-02] MEDS: CHOLECALCIFEROL VIT D3 1,000 UNITS TAB PO SCH (10:15)
[2018-03-02] MEDS: METOPROLOL SUCCINATE XR 25 MG TAB PO SCH (10:15)
[2018-03-02] MEDS: LISINOPRIL 2.5 MG TAB PO SCH (10:15)
--- NOTE | 2018-03-02 11:32 | PDCONSULT ---
Nurse Reviewer Note: Assessment/Plan: Hyponatremia: urine studies consistent with SIADH, sounds like pt has had longstanding issues with hyponatremia. Pt had previously been on salt tabs but was switched at facility to sodium bicarbonate tablets, which are lower dosage. Also, he is not following a fluid restriction. - Agree with giving sodium chloride tablets. - Will check CXR. - TSH ok, cortisol pending. - Will place on strict fluid restriction of 1L. - Will continue to check sodium q8h for now. HTN: BP controlled on metoprolol and lisinopril, will continue to monitor. Thank you for the interesting consult. Nephrology will continue to follow, please call if you have any additional questions or concerns. H & P Stated Complaint: Sent in for low sodium Time Seen by Provider: 02/28/18 10:28 HPI/ROS: HPI: Mr. Diaz is an 83 yo M who was admitted for hyponatremia. Pt had labs checked as outpatient and noted to have Sodium of 123, was told to come to ER. He states that he had hyponatremia before about 3 years ago, was started on salt tabs and did better. He lives in [place] and he and daughter note that they changed him from his regular salt tabs to sodium bicarbonate tablet, and with that his sodium problems recur. Pt has been on fluid restrictions before but states they did not help him, does not follow a fluid restriction as outpatient. He denies using any diuretics or NSAIDs. His sodium on presentation here was 127. He was given NS and his Na dropped to 123 yesterday. NS stopped and his sodium bicarbonate was changed to sodium chloride tablets. His sodium today is still 124, prompting consult. Pt notes that he is trying to drink fluids, has been drinking water, coffee, juice and milk in the past 24 hrs in addition to his Glucerna. ROS: positive per HPI, rest of 10-point ROS negative Source: Patient, Family - Personal History Current Tetanus/Diphtheria Vaccine: Yes Current Tetanus Diphtheria and Acellular Pertussis (TDAP): Yes - Medical/Surgical History Hx Asthma: No Hx Chronic Respiratory Disease: No Hx Diabetes: Yes Hx Cardiac Disease: No Hx Renal Disease: No Hx Cirrhosis: No Hx Alcoholism: No Hx HIV/AIDS: No Hx Splenectomy or Spleen Trauma: No Other PMH: diabetes, dematitis, dementia, htn, hypo-osmolarlity, hyponatrimia, hypothyroidism, chronic back pain. - Family History Significant Family History: No pertinent family hx - Social History Smoking Status: Former smoker - Physical Exam Exam: General: alert and oriented, no acute distress Eyes: EOMI, PERRL OP: Clear, MMM Neck: supple, no thyromegaly CV: RRR, no edema BLE Resp: CTA bilat, nonlabored respirations Abd: Soft, NT/ND Neuro: CN II-XII grossly intact, no asterixis Psych: cooperative, appropriate mood and affect Constitutional: Initial Vital Signs Temperature (C) 37.4 C 02/28/18 10:33 Heart Rate 94 02/28/18 10:33 Respiratory Rate 16 02/28/18 10:33 Blood Pressure 176/74 H 02/28/18 10:33 O2 Sat (%) 94 02/28/18 10:33 O2 Delivery Mode Room Air O2 (L/minute) 2 Allergies/Adverse Reactions: No Known Allergies Allergy (Verified 02/28/18 12:26) Home Medications: Medication Instructions Recorded Acetaminophen [Tylenol 325mg (*)] 650 mg PO Q8 PRN 07/07/17 Cholecalciferol Vit D3 [Vitamin D3 1,000 units PO DAILY@1030 07/07/17 (*)] Cyanocobalamin [Vitamin B12 (*)] 500 mcg PO DAILY@1030 07/07/17 Sodium Bicarbonate [Na Bicarb] 1,300 mg PO BID 07/07/17 Apixaban [Eliquis] 5 mg PO BID #1 tab 07/14/17 Lisinopril [Zestril 2.5 mg (*)] 2.5 mg PO DAILY tab 07/14/17 Metoprolol Succinate Xr [Toprol Xl 25 mg PO DAILY tab 07/14/17 25 mg (*)] Ferrous Sulfate [Slow Fe 140 MG 140 mg PO DAILY 02/28/18 (*)] Levothyroxine [Synthroid 88 mcg 88 mcg PO DAILY06 02/28/18 (*)] metFORMIN HCL [Glucophage 500 mg 750 mg PO BIDMEAL 02/28/18 (*)] Lab and Imaging 02/28/18 10:36 03/02/18 04:36 WBC 8.46 10^3/uL (3.80-9.50) 02/28/18 10:36 RBC 4.35 10^6/uL (4.40-6.38) L 02/28/18 10:36 Hgb 12.3 g/dL (13.7-17.5) L 02/28/18 10:36 POC Hgb 14.3 gm/dL (13.7-17.5) 02/28/18 10:40 Hct 36.6 % (40.0-51.0) L 02/28/18 10:36 POC Hct 42 % (40-51) 02/28/18 10:40 MCV 84.1 fL (81.5-99.8) 02/28/18 10:36 MCH 28.3 pg (27.9-34.1) 02/28/18 10:36 MCHC 33.6 g/dL (32.4-36.7) 02/28/18 10:36 RDW 18.4 % (11.5-15.2) H 02/28/18 10:36 Plt Count 218 10^3/uL (150-400) 02/28/18 10:36 MPV 8.7 fL (8.7-11.7) 02/28/18 10:36 Neut % (Auto) 69.6 % (39.3-74.2) 02/28/18 10:36 Lymph % (Auto) 16.7 % (15.0-45.0) 02/28/18 10:36 Branch % (Auto) 11.5 % (4.5-13.0) 02/28/18 10:36 Eos % (Auto) 1.3 % (0.6-7.6) 02/28/18 10:36 Baso % (Auto) 0.5 % (0.3-1.7) 02/28/18 10:36 Nucleat RBC Rel Count 0.0 % (0.0-0.2) 02/28/18 10:36 Absolute Neuts (auto) 5.90 10^3/uL (1.70-6.50) 02/28/18 10:36 Absolute Lymphs (auto) 1.41 10^3/uL (1.00-3.00) 02/28/18 10:36 Absolute Monos (auto) 0.97 10^3/uL (0.30-0.80) H 02/28/18 10:36 Absolute Eos (auto) 0.11 10^3/uL (0.03-0.40) 02/28/18 10:36 Absolute Basos (auto) 0.04 10^3/uL (0.02-0.10) 02/28/18 10:36 Absolute Nucleated RBC 0.00 10^3/uL (0-0.01) 02/28/18 10:36 Immature Gran % 0.4 % (0.0-1.1) 02/28/18 10:36 Immature Gran # 0.03 10^3/uL (0.00-0.10) 02/28/18 10:36 POC Sodium 126 mEq/L (135-145) L 02/28/18 10:40 Sodium 124 mEq/L (135-145) L 03/02/18 04:36 POC Potassium 4.6 mEq/L (3.3-5.0) 02/28/18 10:40 Potassium 4.8 mEq/L (3.3-5.0) 03/02/18 04:36 POC Chloride 89 mEq/L (97-110) L 02/28/18 10:40 Chloride 91 mEq/L (97-110) L 03/02/18 04:36 Carbon Dioxide 25 mEq/l (22-31) 03/02/18 04:36 Anion Gap 8 mEq/L (8-16) 03/02/18 04:36 POC BUN 18 mg/dL (7-23) 02/28/18 10:40 BUN 18 mg/dL (7-23) 03/02/18 04:36 Creatinine 0.7 mg/dL (0.7-1.3) 03/02/18 04:36 POC Creatinine 0.9 mg/dL (0.7-1.3) 02/28/18 10:40 Estimated GFR > 60 03/02/18 04:36 Glucose 88 mg/dL (70-100) 03/02/18 04:36 POC Glucose 125 mg/dL (70-100) H 02/28/18 10:40 Serum Osmolality 265 mosmo/kg (280-297) L 02/28/18 10:36 Calcium 8.9 mg/dL (8.5-10.4) 03/02/18 04:36 TSH 1.860 uIU/mL (0.465-4.680) 02/28/18 13:55 Cortisol AM Sample 11.7 ug/dL (4.5-22.7) 03/02/18 09:36 Urine Color YELLOW 02/28/18 11:00 Urine Appearance CLEAR 02/28/18 11:00 Urine pH 7.0 (5.0-7.5) 02/28/18 11:00 Ur Specific [place] 1.006 (1.002-1.030) 02/28/18 11:00 Urine Protein NEGATIVE (NEGATIVE) 02/28/18 11:00 Urine Ketones NEGATIVE (NEGATIVE) 02/28/18 11:00 Urine Blood NEGATIVE (NEGATIVE) 02/28/18 11:00 Urine Nitrate NEGATIVE (NEGATIVE) 02/28/18 11:00 Urine Bilirubin NEGATIVE (NEGATIVE) 02/28/18 11:00 Urine Urobilinogen NEGATIVE EU (0.2-1.0) 02/28/18 11:00 Ur Leukocyte Esterase NEGATIVE (NEGATIVE) 02/28/18 11:00 Urine RBC 1-3 /hpf (0-3) 02/28/18 11:00 Urine WBC 1-3 /hpf (0-3) 02/28/18 11:00 Ur Epithelial Cells NONE SEEN /lpf (NONE-1+) 02/28/18 11:00 Urine Osmolality 293 mosmo/kg (300-900) L 02/28/18 11:00 Ur Random Creatinine 34.5 mg/dL 02/28/18 11:00 Ur Random Sodium 55 mEq/L (30-90) 02/28/18 11:00 Ur Random Potassium 32.5 mEq/L (0.5-35.0) 02/28/18 11:00 Urine Glucose NEGATIVE (NEGATIVE) 02/28/18 11:00
--- NOTE | 2018-03-02 12:11 | HOSPPROG ---
Hospitalist Progress Note Assessment/Plan: 83 yo M w DM, chronic hyponatremia here w worsening hyponatremia hyponatremia: baseline 130 fell w IVF s/o SIADH increase salt tabs add ensure continues to fall nephrology to see CHF: has h/o systolic chf he is not in decompensated CHF echo pending, unlikely to be the cause dm: continue meds proph: continue eliquis dispo: inpt Subjective: case d/w dr bautista. Na fell! Objective: Vital Signs Temp Pulse Resp BP Pulse Ox 37.4 C 82 18 145/75 H 95 03/02/18 09:13 03/02/18 10:15 03/02/18 09:13 03/02/18 10:15 03/02/18 09:13 03/01/18 03/02/18 03/03/18 05:59 05:59 05:59 Intake Total 1000 Balance 1000 - Physical Exam Constitutional: no apparent distress, appears nourished Eyes: PERRL, anicteric sclera Ears, Nose, Mouth, Throat: moist mucous membranes, hearing normal Cardiovascular: regular rate and rhythym, no murmur, rub, or gallop Respiratory: no respiratory distress, no rales or rhonchi Gastrointestinal: normoactive bowel sounds, soft, non-tender abdomen Genitourinary: no bladder fullness, No acosta in urethra Skin: warm, normal color Musculoskeletal: full muscle strength, no muscle tenderness Neurologic: AAOx3, sensation intact bilaterally Psychiatric: interacting appropriately, not anxious ICD10 Worksheet Patient Problems: Problems Problem Status Onset Dizziness Acute Hyponatremia Acute Acute coronary syndrome Acute Congestive heart failure Acute Dementia Acute Influenza Acute New onset atrial fibrillation Acute
[2018-03-02] MEDS: FERROUS SULFATE 140 MG TAB.ER PO SCH (16:51)
[2018-03-03] MEDS: LEVOTHYROXINE 88 MCG TAB PO SCH (05:38)
--- NOTE | 2018-03-03 09:13 | SOAPPROG ---
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 Hyponatremia: - Na 128 today, goal to normalize - monitor accurate I/O's - Continue salt tabs 1g TID - CXR no masses noted - TSH ok, am cortisol >10 - fluid restriction 1L - move sodiums to q12h HTN: BP controlled on BB this am Hyperkalemia: -mild up to 5.2 today -will hold lisinopril as low dose and monitor BP -may consider diuretic in the future which could benefit all of the above 03/03/18 09:30 Subjective: Patient has a francis southern accent. Feeling well today. Objective: Vital Signs Temp Pulse Resp BP Pulse Ox 36.6 C 85 16 128/60 H 100 03/03/18 08:00 03/03/18 08:00 03/03/18 08:00 03/03/18 08:00 03/03/18 08:00 Laboratory Results 03/03/18 05:00 03/02/18 03/03/18 03/04/18 05:59 05:59 05:59 Intake Total 1000 700 Output Total 150 Balance 1000 550 Physical Exam - Physical Exam General Appearance: WD/WN, alert, no apparent distress EENT: PERRL/EOMI, normal ENT inspection Neck: non-tender, full range of motion, supple Respiratory: chest non-tender, lungs clear Cardiac/Chest: normal peripheral pulses, regular rate, rhythm, edema Abdomen: normal bowel sounds, non-tender, soft Skin: normal color, warm/dry Extremities: normal range of motion, non-tender, pedal edema (trace) Neuro/Psych: no motor/sensory deficits, alert, other (walker) ICD10 Worksheet Patient Problems: Problems Problem Status Onset Dizziness Acute Hyponatremia Acute Acute coronary syndrome Acute Congestive heart failure Acute Dementia Acute Influenza Acute New onset atrial fibrillation Acute
[2018-03-03] MEDS: METOPROLOL SUCCINATE XR 25 MG TAB PO SCH (09:23)
[2018-03-03] MEDS: CYANO/VITAMIN B12 1000 MCG TAB PO SCH (09:23)
[2018-03-03] MEDS: SODIUM CHLORIDE 1,000 MG TAB PO SCH ×3 (09:23→17:58)
[2018-03-03] MEDS: APIXABAN 5 MG TAB PO SCH ×2 (09:24→20:22)
[2018-03-03] MEDS: metFORMIN HCL 500 MG TAB PO SCH ×2 (09:24→17:59)
[2018-03-03] MEDS: DOCUSATE SODIUM 100 MG CAP PO SCH ×2 (09:24→20:22)
[2018-03-03] MEDS: CHOLECALCIFEROL VIT D3 1,000 UNITS TAB PO SCH (09:24)
[2018-03-03] MEDS: LISINOPRIL 2.5 MG TAB PO SCH (09:40)
--- NOTE | 2018-03-03 14:05 | HOSPPROG ---
Hospitalist Progress Note Assessment/Plan: 83 yo M w DM, chronic hyponatremia here w worsening hyponatremia hyponatremia: baseline 130 fell w IVF s/o SIADH increase salt tabs add ensure now rising continue current management CHF: has h/o systolic chf he is not in decompensated CHF echo w slight systolic dysfunction- this is not the cause dm: continue meds proph: continue eliquis dispo: lives at [facility] wishes to not go back there Subjective: cxr w no mass (interp by me). sodium increasing Objective: Vital Signs Temp Pulse Resp BP Pulse Ox 36.6 C 85 16 128/60 H 100 03/03/18 08:00 03/03/18 08:00 03/03/18 08:00 03/03/18 08:00 03/03/18 08:00 Laboratory Results 03/03/18 05:00 03/02/18 03/03/18 03/04/18 05:59 05:59 05:59 Intake Total 1000 700 Output Total 150 Balance 1000 550 - Physical Exam Constitutional: no apparent distress, appears nourished Eyes: PERRL, anicteric sclera Ears, Nose, Mouth, Throat: moist mucous membranes, hearing normal Cardiovascular: regular rate and rhythym, no murmur, rub, or gallop Respiratory: no respiratory distress, no rales or rhonchi Gastrointestinal: normoactive bowel sounds, soft, non-tender abdomen Genitourinary: no bladder fullness, No acosta in urethra Skin: warm, normal color Musculoskeletal: full muscle strength, no muscle tenderness Neurologic: AAOx3, sensation intact bilaterally Psychiatric: interacting appropriately, not anxious Lymph, Heme, Immunologic: no cervical LAD ICD10 Worksheet Patient Problems: Problems Problem Status Onset Dizziness Acute Hyponatremia Acute Acute coronary syndrome Acute Congestive heart failure Acute Dementia Acute Influenza Acute New onset atrial fibrillation Acute
[2018-03-03] MEDS: FERROUS SULFATE 140 MG TAB.ER PO SCH (18:01)
[2018-03-04] MEDS: LEVOTHYROXINE 88 MCG TAB PO SCH (05:26)
[2018-03-04] MEDS: metFORMIN HCL 500 MG TAB PO SCH ×2 (07:58→18:09)
[2018-03-04] MEDS: SODIUM CHLORIDE 1,000 MG TAB PO SCH ×3 (07:59→18:12)
[2018-03-04] MEDS: DOCUSATE SODIUM 100 MG CAP PO SCH ×2 (08:00→20:41)
[2018-03-04] MEDS: METOPROLOL SUCCINATE XR 25 MG TAB PO SCH (08:01)
[2018-03-04] MEDS: APIXABAN 5 MG TAB PO SCH ×2 (08:01→20:41)
--- NOTE | 2018-03-04 09:16 | SOAPPROG ---
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 Hyponatremia: - Na 129 today, may allow to normalize - monitor accurate I/O's - Continue salt tabs 1g TID for now, hoping to switch to BID for discharge - CXR no masses noted - TSH ok, am cortisol >10 - fluid restriction 1L for now, hoping to liberalize upon discharge - added lasix 20mg po this am - move sodiums to q12h HTN: BP controlled on BB this am, was high yesterday. Holding MAKSIM and gave lasix as above. Hyperkalemia: -mild still at 5.0 -holding lisinopril as above -may have some component of BPH, may need to add tamsulosin as well -will check PVR's today 03/04/18 10:13 Subjective: Patient not wanting to return to assisted. States he hopes to move in with his daughter who just bought a new house. Objective: Vital Signs Temp Pulse Resp BP Pulse Ox 36.6 C 82 16 121/71 H 96 03/04/18 07:24 03/04/18 08:01 03/04/18 07:24 03/04/18 08:01 03/04/18 07:24 Laboratory Results 03/04/18 05:27 03/03/18 03/04/18 03/05/18 05:59 05:59 05:59 Intake Total 700 1025 Output Total 150 Balance 550 1025 Physical Exam - Physical Exam General Appearance: WD/WN, alert, no apparent distress EENT: PERRL/EOMI, normal ENT inspection Neck: non-tender, full range of motion, supple Respiratory: chest non-tender, lungs clear, normal breath sounds Cardiac/Chest: normal peripheral pulses, regular rate, rhythm, edema (trace) Abdomen: normal bowel sounds, non-tender, distended Skin: normal color, warm/dry Extremities: normal range of motion, non-tender Neuro/Psych: no motor/sensory deficits, alert, normal mood/affect, oriented x 3 (walker) ICD10 Worksheet Patient Problems: Problems Problem Status Onset Dizziness Acute Hyponatremia Acute Acute coronary syndrome Acute Congestive heart failure Acute Dementia Acute Influenza Acute New onset atrial fibrillation Acute
[2018-03-04] MEDS: CYANO/VITAMIN B12 1000 MCG TAB PO SCH (10:18)
[2018-03-04] MEDS: CHOLECALCIFEROL VIT D3 1,000 UNITS TAB PO SCH (10:18)
[2018-03-04] MEDS: FERROUS SULFATE 140 MG TAB.ER PO SCH (17:21)
--- NOTE | 2018-03-04 22:12 | HOSPPROG ---
Hospitalist Progress Note Assessment/Plan: Assessment: 83 yo M p/w acute on chronic hyponatremia 2/2 SIADH Plan: # Acute on chronic hyponatremia: baseline 130, has been uptrending w/ tight fluid restriction, salt tabs, stopping ACEi -appreciate ongoing renal consult -started lasix today to remove free water, will gauge impact w/ UOP and sNa in AM -counseled patient on the role that lasix plays, as well as need for ongoing fluid restriction and salt tabs, both of which may be modified and loosened w/ repeat sNa levels drawn 24hrs after to ensure stability # Chronic systolic CHF: has h/o systolic chf, but is currently not decompensated , monitoring volume status closely w/ fluid restriction and introduction of lasix # Atrial fibrillation: paroxysmal, currently in NSR, cont bblocker/eliquis # HTN: chronic, counseled patient that his ACEi stopped 2/2 hyperkalemia and we are gauging response to lasix + bblocker dm: continue meds proph: continue eliquis diet: ADA w/ solute containing fluids encouraged dispo: patient declining to return to [place], will work w/ case mgmt to determine options Subjective: patient reports he does not want to return to ; reports significant thirst Objective: Vital Signs Temp Pulse Resp BP Pulse Ox 36.7 C 88 16 155/78 H 96 03/04/18 15:30 03/04/18 15:30 03/04/18 15:30 03/04/18 15:30 03/04/18 15:30 Laboratory Results 03/04/18 05:27 03/03/18 03/04/18 03/05/18 05:59 05:59 05:59 Intake Total 700 1025 792 Output Total 150 650 Balance 550 1025 142 - Time Spent With Patient Time Spent with Patient: greater than 35 minutes Time Spent with Patient: Greater than 35 minutes spent on this patients care, greater than 50% of time spent counseling, educating, and coordinating care regarding the above mentioned plan. - Physical Exam Constitutional: no apparent distress, appears nourished, not in pain, uncomfortable Ears, Nose, Mouth, Throat: other (lips/tongue do not appear dry; moist) Cardiovascular: regular rate and rhythym, no murmur, rub, or gallop Respiratory: no respiratory distress, no rales or rhonchi, clear to auscultation Gastrointestinal: normoactive bowel sounds, soft, non-tender abdomen, no palpable masses Neurologic: AAOx3 Psychiatric: interacting appropriately, not anxious, not encephalopathic, thought process linear, other (perseverating on lasix/ACEi) ICD10 Worksheet Patient Problems: Problems Problem Status Onset New onset atrial fibrillation Acute Acute coronary syndrome Acute Congestive heart failure Acute Influenza Acute Dementia Acute Hyponatremia Acute Dizziness Acute
[2018-03-05] MEDS: LEVOTHYROXINE 88 MCG TAB PO SCH (05:23)
[2018-03-05] MEDS: metFORMIN HCL 500 MG TAB PO SCH ×2 (08:54→17:52)
[2018-03-05] MEDS: APIXABAN 5 MG TAB PO SCH ×2 (08:55→21:45)
[2018-03-05] MEDS: SODIUM CHLORIDE 1,000 MG TAB PO SCH ×2 (08:55→21:45)
[2018-03-05] MEDS: FUROSEMIDE 20 MG TAB PO SCH (08:56)
[2018-03-05] MEDS: DOCUSATE SODIUM 100 MG CAP PO SCH ×2 (08:56→21:45)
[2018-03-05] MEDS: METOPROLOL SUCCINATE XR 25 MG TAB PO SCH (08:57)
--- NOTE | 2018-03-05 10:15 | SOAPPROG ---
SOAP Progress Note Assessment/Plan: Assessment/Plan: Hyponatremia: urine studies consistent with SIADH, pt with longstanding problems with hyponatremia. Most recently his sodium tabs were switched to sodium bicarb and he does not follow fluid restriction at home, likely leading to recent drop. Sodium now up to 130. - Will continue salt tabs, ok to change to BID dosing. - Will change fluid restriction to 1200ml. - Will continue Lasix. - Will continue to monitor daily. HTN: BP ok on current meds. Hyperkalemia: improved with stopped lisinopril and starting Lasix, will continue to monitor. Subjective: No acute events overnight. Pt feels well today, has no complaints. Objective: Vital Signs Temp Pulse Resp BP Pulse Ox 37.0 C 88 16 137/67 H 94 03/05/18 07:25 03/05/18 08:57 03/05/18 07:25 03/05/18 08:57 03/05/18 07:25 Laboratory Results 03/05/18 05:15 03/04/18 03/05/18 03/06/18 05:59 05:59 05:59 Intake Total 1025 792 Output Total 1000 475 Balance 1025 -208 -475 General: alert and oriented, no acute distress Eyes: EOMI, PERRL OP: Clear CV: RRR Resp: nonlabored respirations on RA Abd: Soft, NT/ND Ext: no edema Neuro: CN II-XII Grossly intact Psych: cooperative ICD10 Worksheet Patient Problems: Problems Problem Status Onset Dizziness Acute Hyponatremia Acute Acute coronary syndrome Acute Congestive heart failure Acute Dementia Acute Influenza Acute New onset atrial fibrillation Acute
[2018-03-05] MEDS: CYANO/VITAMIN B12 1000 MCG TAB PO SCH (12:06)
[2018-03-05] MEDS: CHOLECALCIFEROL VIT D3 1,000 UNITS TAB PO SCH (12:06)
--- NOTE | 2018-03-05 14:56 | ASMTCMCOM ---
CM Note CM Note Notes: CM spoke with pt's daughter. Per daughter, he will be moving into her newly bought home near [place] instead of returning to [place]. She is unclear as to the exact date this will be able to occur, but believes it will some time in the coming week. PT recommended SNF and pt was referred to 3 rehab facilities today. It is hoped that he will be able to transition from a rehab facility to her home. He was referred to [facility] and a facility in [place]. His daughter requested that he go to a facility that does not have long-term patients living there; the rehab facility in [place] does have long-term pts. CM to follow. D/C Plan: Anticipate SNF/Rehab Date Signed: 03/05/2018 02:55 PM Electronically Signed By:Noa Lipscomb
--- NOTE | 2018-03-05 16:19 | HOSPPROG ---
Hospitalist Progress Note Assessment/Plan: Assessment: 83 yo M p/w acute on chronic hyponatremia 2/2 SIADH Plan: # Acute on chronic hyponatremia: baseline 130, has been uptrending w/ tight fluid restriction, salt tabs, stopping ACEi -d/w Dr. Wood, we agreed to loosen his fluid restriction and reduce frequency of salt tabs in an attempt to simulate how patient may adhere to fluid /meds outside the hospital and gauge whether his Na/fluid balance will remain stable -started lasix 03/04 to remove free water, continue to gauge impact w/ UOP and sNa in AM -counseled patient and daughter on the role that lasix plays, as well as need for ongoing fluid restriction and salt tabs -appreciate ongoing renal consultation and outpt f/u # Chronic systolic CHF: has h/o systolic chf, but is currently not decompensated , monitoring volume status closely w/ fluid restriction and introduction of lasix # Atrial fibrillation: paroxysmal, currently in NSR, cont bblocker/eliquis # HTN: chronic, counseled patient that his ACEi stopped 2/2 hyperkalemia and we are gauging response to lasix + bblocker dm: continue meds proph: continue eliquis diet: ADA w/ solute containing fluids encouraged dispo: after extensive conversations with daughter/patient, he is amenable to transition to SNF/rehab temporarily while his daughter gets home arranged, requiring at least 24hrs more to ensure he tolerates above interventions Subjective: ambulating w/o dizziness Objective: Vital Signs Temp Pulse Resp BP Pulse Ox 37.0 C 88 16 137/67 H 94 03/05/18 07:25 03/05/18 08:57 03/05/18 07:25 03/05/18 08:57 03/05/18 07:25 Laboratory Results 03/05/18 05:15 03/04/18 03/05/18 03/06/18 05:59 05:59 05:59 Intake Total 6461 751 9045 Output Total 1000 975 Balance 1025 -208 271 - Time Spent With Patient Time Spent with Patient: greater than 35 minutes Time Spent with Patient: Greater than 35 minutes spent on this patients care, greater than 50% of time spent counseling, educating, and coordinating care regarding the above mentioned plan. - Pending Discharge Pending Discharge Within 24 Hours: Yes Pending Discharge Date: 03/06/18 Pending Discharge Time: 11:00 - Physical Exam Constitutional: no apparent distress, not in pain, No uncomfortable Cardiovascular: regular rate and rhythym, no murmur, rub, or gallop, No edema Respiratory: no respiratory distress, no rales or rhonchi, clear to auscultation Gastrointestinal: normoactive bowel sounds, soft, non-tender abdomen, no palpable masses Neurologic: AAOx3 Psychiatric: interacting appropriately, not anxious, not encephalopathic, thought process linear ICD10 Worksheet Patient Problems: Problems Problem Status Onset New onset atrial fibrillation Acute Acute coronary syndrome Acute Congestive heart failure Acute Influenza Acute Dementia Acute Hyponatremia Acute Dizziness Acute
[2018-03-05] MEDS: FERROUS SULFATE 140 MG TAB.ER PO SCH (17:52)
[2018-03-06] MEDS: LEVOTHYROXINE 88 MCG TAB PO SCH (06:49)
[2018-03-06] MEDS: APIXABAN 5 MG TAB PO SCH ×2 (08:28→19:57)
[2018-03-06] MEDS: metFORMIN HCL 500 MG TAB PO SCH ×2 (08:28→18:17)
[2018-03-06] MEDS: METOPROLOL SUCCINATE XR 25 MG TAB PO SCH (08:29)
[2018-03-06] MEDS: DOCUSATE SODIUM 100 MG CAP PO SCH ×2 (08:29→19:57)
[2018-03-06] MEDS: FUROSEMIDE 20 MG TAB PO SCH (08:29)
[2018-03-06] MEDS: SODIUM CHLORIDE 1,000 MG TAB PO SCH ×2 (08:30→19:57)
--- NOTE | 2018-03-06 10:28 | SOAPPROG ---
SOAP Progress Note Assessment/Plan: Assessment/Plan: Hyponatremia: urine studies consistent with SIADH, pt with longstanding problems with hyponatremia. Most recently his sodium tabs were switched to sodium bicarb and he does not follow fluid restriction at home, likely leading to recent drop. Sodium now up to 131. - Will continue salt tabs at BID dosing. - Will change fluid restriction to 1500ml. - Will continue Lasix. - Will arrange outpatient f/u in nephrology clinic. HTN: BP ok on current meds. Hyperkalemia: improved with stopped lisinopril and starting Lasix. Thank you for the interesting consult. Nephrology will sign off at this time, please call if you have any additional questions or concerns. Subjective: No acute events overnight. Pt states he is feeling fine, has no complaints today. Objective: Vital Signs Temp Pulse Resp BP Pulse Ox 36.4 C 99 12 110/62 94 03/06/18 08:00 03/06/18 08:29 03/06/18 08:00 03/06/18 08:29 03/06/18 08:00 Laboratory Results 03/06/18 06:10 03/05/18 03/06/18 03/07/18 05:59 05:59 05:59 Intake Total 792 1483 Output Total 1000 1775 Balance -208 -292 General: alert and oriented, no acute distress Eyes: EOMI, PERRL OP: Clear CV: RRR Resp: nonlabored respirations on RA Abd: Soft, NT/ND Ext: no edema Neuro: CN II-XII Grossly intact, no asterixis Psych: cooperative ICD10 Worksheet Patient Problems: Problems Problem Status Onset Dizziness Acute Hyponatremia Acute Acute coronary syndrome Acute Congestive heart failure Acute Dementia Acute Influenza Acute New onset atrial fibrillation Acute
[2018-03-06] MEDS: CYANO/VITAMIN B12 1000 MCG TAB PO SCH (12:11)
[2018-03-06] MEDS: CHOLECALCIFEROL VIT D3 1,000 UNITS TAB PO SCH (12:12)
[2018-03-06] MEDS: FERROUS SULFATE 140 MG TAB.ER PO SCH (18:16)
--- NOTE | 2018-03-06 21:16 | HOSPPROG ---
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 Serrato, she reports she will arrange outpt f/u -loosen his fluid restriction (to 1.5) and reduce frequency of salt tabs in an attempt to simulate how patient may adhere to fluid/meds outside the hospital and gauge whether his Na/fluid balance will remain stable -started lasix 03/04 to remove free water, continue to gauge impact w/ UOP and sNa in AM -counseled patient on the benefits of rehab and that [facility] is prepared to accept patient, but he reports that he is not prepared, daughter does not have transportation, and situation became increasingly stressful for patient after he reported he would d/w his daughter # Chronic systolic CHF: has h/o systolic chf, but is currently not decompensated , started lasix for above -stopped ACEi given hyperkalemia, remain off # Atrial fibrillation: paroxysmal, currently in NSR, cont bblocker/eliquis # HTN: cont bblocker and new lasix, off ACEi dm: continue meds proph: continue eliquis diet: ADA w/ solute containing fluids encouraged dispo: after extensive conversations with patient, he is amenable to transition to SNF/rehab tomorrow Subjective: patient feels thirsty despite loosening restriction to 1.2L/day Objective: Vital Signs Temp Pulse Resp BP Pulse Ox 36.4 C 76 16 143/80 H 94 03/06/18 15:21 03/06/18 15:21 03/06/18 15:21 03/06/18 15:21 03/06/18 15:21 Laboratory Results 03/06/18 06:10 03/05/18 03/06/18 03/07/18 05:59 05:59 05:59 Intake Total 792 1483 1475 Output Total 1000 2253 550 Balance -208 -151 925 - Time Spent With Patient Time Spent with Patient: greater than 35 minutes Time Spent with Patient: Greater than 35 minutes spent on this patients care, greater than 50% of time spent counseling, educating, and coordinating care regarding the above mentioned plan. - Pending Discharge Pending Discharge Within 24 Hours: Yes Pending Discharge Date: 03/07/18 Pending Discharge Time: 11:00 ICD10 Worksheet Patient Problems: Problems Problem Status Onset New onset atrial fibrillation Acute Acute coronary syndrome Acute Congestive heart failure Acute Influenza Acute Dementia Acute Hyponatremia Acute Dizziness Acute
[2018-03-06 23:02] VITALS: BP 149/89
[2018-03-07] MEDS: LEVOTHYROXINE 88 MCG TAB PO SCH (05:20)
[2018-03-07] MEDS: metFORMIN HCL 500 MG TAB PO SCH (09:20)
[2018-03-07] MEDS: DOCUSATE SODIUM 100 MG CAP PO SCH (09:21)
[2018-03-07] MEDS: METOPROLOL SUCCINATE XR 25 MG TAB PO SCH (09:21)
[2018-03-07] MEDS: APIXABAN 5 MG TAB PO SCH (09:22)
[2018-03-07] MEDS: SODIUM CHLORIDE 1,000 MG TAB PO SCH (09:22)
[2018-03-07] MEDS: FUROSEMIDE 20 MG TAB PO SCH (09:22)
[2018-03-07] MEDS: CHOLECALCIFEROL VIT D3 1,000 UNITS TAB PO SCH (10:25)
[2018-03-07] MEDS: CYANO/VITAMIN B12 1000 MCG TAB PO SCH (10:25)
--- NOTE | 2018-03-07 10:58 | PDIAF ---
- Diagnosis Diagnosis: hyponatremia, chronic; chf; diabetes; a fib Code Status: Full Code - Medication Management Discharge Medications: Medications to Continue on Transfer Cholecalciferol Vit D3 [Vitamin D3 (*)] 1,000 units PO DAILY@1030 07/07/17 [ Last Taken 02/28/18] Cyanocobalamin [Vitamin B12 (*)] 500 mcg PO DAILY@1030 07/07/17 [Last Taken ] Apixaban [Eliquis] 5 mg PO BID #1 tab 07/14/17 [Last Taken 02/28/18] Lisinopril [Zestril 2.5 mg (*)] 2.5 mg PO DAILY tab 07/14/17 [Last Taken ] Metoprolol Succinate Xr [Toprol Xl 25 mg (*)] 25 mg PO DAILY tab 07/14/17 [ Last Taken 02/28/18] Ferrous Sulfate [Slow Fe 140 MG (*)] 140 mg PO DAILY 02/28/18 [Last Taken ] Levothyroxine [Synthroid 88 mcg (*)] 88 mcg PO DAILY06 02/28/18 [Last Taken ] metFORMIN HCL [Glucophage 500 mg (*)] 750 mg PO BIDMEAL 02/28/18 [Last Taken ] Furosemide [Lasix 20 MG (*)] 20 mg PO DAILY tab 03/07/18 [Last Taken Unknown] Sodium Chloride [Salt Tablet] 1,000 mg PO BID tab 03/07/18 [Last Taken Unknown] Discharge Medications: Refer to the Discharge Home Medication list for PRN reason. - Orders Services needed: Registered Nurse, Certified [employer], Master Baggage Agent , Physical Therapy, Occupational Therapy Isolation Type: None Diet Recommendation: fluid restriction (use comment for amount) (1500 ml / 24 hours includes ALL fluids except any ensure he drinks) Diet Texture: Regular Texture Diet Weigh Patient: 3 times weekly watching for weight gain of fluid retention Additional Instructions: Oral fluid restriction 1500 mL per 24 hr includes all fluids except any Ensure he drinks - Follow Up Care Current Providers and Referrals: Carol Ann Cosme MD [Primary Care Provider] - As per Instructions
--- NOTE | 2018-03-07 11:05 | PDDCSUM ---
Discharge Summary Discharge Summary: DISCHARGE DIAGNOSES: * acute on chronic hyponatremia * chronic systolic congestive heart failure * history of atrial fibrillation CONSULTANTS: Dr. Paula Serrato PROCEDURES: Echocardiogram showing improvement in ejection fraction to 50% from prior 35% HOSPITAL COURSE SUMMARY: This patient presented to his primary care physician with a complaint of some mild dizziness and on blood testing was found have sodium 123. He has a history of ongoing hyponatremia for which he has been taking some chronic salt supplements twice daily though the patient notably also has a history of congestive heart failure. At the time of his presentation here he was felt to be euvolemic. He did not have signs of congestive heart failure and notably echocardiogram showed improvement in his ejection fraction to 50% from 35% in June of this year. His renal function is normal. Patient was admitted the hospital. He was continued on salt supplements but the dose was lowered a little bit. He was started on an oral fluid restriction and some Lasix was added. So far his sodium has come up and has settled into the 129-131 range over the last few days. He has done well without any concerning symptoms and without any accumulation of excessive fluid. Creatinine is stayed normal. At this point is felt he is stable for discharge to home with ongoing monitoring. He understands that he will need to be on the oral fluid restriction. He understands that this will be an ongoing chronic monitoring situation at home need some blood testing frequency. I did review with the patient the potential to consider using urea as an osmotic diuretic agent, though he would have to take prescriptions to pharmacy to see what the cost would be for him. However this might work quite well for him to keep his sodium in better range and help manage his fluid status without impacting heart or renal function. I will review this as well with Dr. Edgar Brantley who will see him in follow-up. PENDING TEST RESULTS: None MEDICATION CHANGES: Decrease sodium from 1300 mg twice daily to 1000 mg twice daily Addition of Lasix 20 mg daily FOLLOW-UP PLAN: With Dr. Edgar rBantley in 2 weeks Greater than 35 minutes bedside and care coordination time today
--- NOTE | 2018-03-07 11:32 | ASMTLACE ---
LACE Length of stay for Answers: 4-6 days current admission Acuity / Level of Answers: Yes Care: Did the patient have an inpatient admission? Comorbidities - select Answers: Congestive heart failure all that apply Coronary Artery Disease Dementia Diabetes (uncontrolled or controlled) Other Notes: Hyponatremia # of Emergency department Answers: 1-2 visits in the last 6 months Score: 17 Date Signed: 03/07/2018 11:31 AM Electronically Signed By:Joyce Mccoy RN
--- NOTE | 2018-03-07 11:54 | ASMTDCNOTE ---
Case Management Discharge Discharge Order Complete? Answers: Yes Patient to Obtain Answers: Other Notes: [facility] Transportation Arranged Answers: Other Notes: [facility] will Pick (Date 03/07/2018 03:00 PM & Time) Case Management Transport Answers: Yes Form Complete Faxed Final Orders Answers: Yes Agency/Facility Transfer Answers: Yes Report Printed & Faxed to Receiving Agency Family Notified Answers: Yes Discharge Comments Notes: D/w , final orders faxed. Krystin meneses notified, RN to call report. Date Signed: 03/07/2018 11:34 AM Electronically Signed By:Joyce Mccoy RN
== END 2018-03-07 15:30 | DRG 641 ==
LOC: EDUNIT# → F3E 12:50 → OBSVTOIN 03-01 14:05
PROVIDERS: ADMIT Internal Medicine; ATTEND Internal Medicine
DX: E87.1 Hypo-osmolality and hyponatremia (principal); I11.0 Hypertensive heart disease with heart failure; I50.22 Chronic systolic (congestive) heart failure; E87.5 Hyperkalemia; E11.9 Type 2 diabetes mellitus without complications; E03.9 Hypothyroidism, unspecified; I48.91 Unspecified atrial fibrillation
CPT/HCPCS: 82435-PO; 82565-PO; 82947-PO; 84132-PO; 84295-PO; 84520-PO; 85014-PO; 97116-GP; 97161-GP; 97166-GO; G0378; G8978-GP-CI; G8979-GP-CI; G8980-GP-CI; G8987-GO-CJ; G8988-GO-CJ; G8989-GO-CJ